=== PATIENT | female | born 1985 | race Caucasian/White ===

== ENCOUNTER 2024-04-04 05:36 | Inpatient (IN) | payer OTHER, SELFPAY ==
[2024-04-03 23:57] VITALS: BP 55/32
[2024-04-04] VITALS (114 sets, daily range): BP systolic 58–128; BP diastolic 32–92; BMI 25.2; BMI 25.9
--- NOTE | 2024-04-04 | ED.GENMED ---
History of Present Illness
<Murali Linares, DO - Last Filed: 04/05/24 07:46>
General
Chief Complaint: Unresponsive
Source: ambulance crew
Exam Limitations: clinical condition
Time Seen by Provider: 04/04/24 00:00
History of Present Illness
History of Present Illness:
See MDM
Past History
<Murali Linares, DO - Last Filed: 04/05/24 07:46>
Past History
ED Past Medical History: None
ED Past Surgical History: None
Social History
Tobacco: Non-smoker
Alcohol: Occasional
Phy Exam
<Murali Linares, DO - Last Filed: 04/05/24 07:46>
Physical Exam
Physical Exam:
See MDM
Course
<Murali Linares, DO - Last Filed: 04/05/24 07:46>
Orders/Labs/Results
Orders:
Orders
04/03/24 23:51
Cardiac Monitoring- Treatment ONCE
IV Insert/Care/Rem.- Treatment PRN
O2 Therapy [RESP] Urgent
Titrate/Wean O2 to maintain O2 sat greater than (%): 93
Special Instructions: TO MAINTAIN CONTINUOUS O2 SATS > OR = 93%
Pulse Ox/cont/shift [RESP] Urgent
Quantity: 1
Special Instructions: CONTINUOUS
04/03/24 23:52
EKG- Treatment ONCE
Test Result ONCE
04/03/24 23:58
Portable Chest Xray [CR Chest Portable - 1 View] Urgent
Comment:
Reason For Exam: POST INTUBATION
Reason Study Needs to be Portable: Patient Unstable
04/03/24 23:59
Alcohol Urgent
B-Hydroxybutyrate Urgent
Complete Blood Count/With Diff Urgent
Comprehensive Metabolic Panel Urgent
HCG, Serum Qualitative Screen Urgent
Comment: Notify provider if positive test present
Lactic Acid Q4H
Comment: ON ICE, CANCEL 2ND ORDER IF FIRST LACTIC ACID LEVEL <2
Magnesium Urgent
Salicylate Urgent
Tylenol [Acetaminophen] Urgent
Urinalysis Reflex To Culture Urgent
Date Specimen was Collected: 04/03/24
Time Specimen was Collected: 23:52
Urine Drug Abuse Screen Urgent
Date Specimen was Collected: 04/03/24
Time Specimen was Collected: 23:52
Urine Microscopic Reflex Cult Urgent
Venous Blood Gas Urgent
%Oxygen/Room Air: RA
Urine Culture Urgent
ODALYS Source: U
Specimen Description:
Date Specimen was Collected: 04/03/24
Time Specimen was Collected: 23:52
04/04/24
Electrocardiogram (*1) Stat
Other Reason for Exam: PO SEPSIS
Comment: DONE
04/04/24 00:30
CT Head W/o Iv Contrast Urgent
Reason For Exam: AMS
04/04/24 00:46
Insulin Human Regular [Novolin R] 8 units IV NOW STA
04/04/24 00:47
Bedside Glucose- Treatment Q1H
IV Insert/Care/Rem.- Treatment PRN
04/04/24 00:52
NORepinephrine 4 MG/250 ML [Levophed] 4 mg in 250 ml .ROUTE .STK-MED
04/04/24 00:54
Basic Metabolic Panel Q2H
Comment: NO K
Serum Osmolality Routine
Comment: ADD ON
Triglycerides Routine
Comment: ADD ON
Propofol 1,000,000 Mcg/100 ml [Diprivan] 1,000,000 mcg in 100 ml .ROUTE .STK-MED
04/04/24 01:35
KCl 20 Meq/50 ml [KCl] 20 meq in 50 ml IV NOW
NORepinephrine 4 MG/250 ML [Levophed] 4 mg in 250 ml IV NOW
Initial dose in mcg/min, then titrate:: 2
Titrate to keep:: MAP > 65 mmHg
Titrate by mcg/min:: 1-2 mcg/min
Frequency of titrations (minutes):: 5
Maximum dose in ICU in mcg/min:: 30
Maximum dose in IMU in mcg/min:: 8
Maximum dose in IVU in mcg/min:: 4
Begin to taper infusion when:: Remained at goal for 4hrs
Taper by mcg/min:: 1-2 mcg/min
Frequency of taper (minutes) if patient maintains goal:: 30
Taper to off?: Yes
If infusion off & no longer maintaining goal:: Contact Provider
Reg Insulin 100 Units/100 ml [Novolin R Insulin Infusion] 100 units in 100 ml IV NOW
04/04/24 01:37
Reg Insulin 100 Units/100 ml [Novolin R Insulin Infusion] 100 units in 100 ml IV NOW
04/04/24 01:38
CefTRIAXone [Rocephin] 1,000 mg IV NOW STA
04/04/24 01:39
Propofol 1,000,000 Mcg/100 ml [Diprivan] 1,000,000 mcg in 100 ml IV NOW
Indication:: Light Sedation
Begin Infusion:: Now
Goal:: RASS 0 to -2
Maximum dose in mcg/kg/min:: 50
Initial dose based on RASS:: Yes
If RASS is:: +1 or pt hemodynamically unstable (SBP < 90mmHg), initiate at 10 mcg/kg/min
If RASS is:: +2, initiate at 20 mcg/kg/min
If RASS is:: greater than or equal to +3, initiate at 30 mcg/kg/min
Titration Instructions:: Titrate by 5-10 mcg/kg/min every 5 minutes until RASS 0 to -2 achieved.
Taper Instructions:: If RASS is at or below goal for 4 consecutive hours decrease infusion by
Taper Instructions:: 5-10 mcg/kg/min every 2 hours to off.
Over-sedation Instructions:: If CPOT 0-2 (at goal) AND RASS -3 to -5 (below goal) decrease sedative by
Over-sedation Instructions:: 50% first. If pain score remains at goal and RASS remains below goal in
Over-sedation Instructions:: 1 hour, decrease opioid infusion by 50%.
Notify provider:: immediately if patient exhibits signs/symptoms of propofol-related
Notify provider:: infusion syndrome.
Additional Instructions:: Patient MUST be mechanically ventilated and MUST receive analgesia.
04/04/24 01:41
Add On- LAB Urgent
Tests Added?: Serum osmol
04/04/24 01:42
CT Chest/abd/pel W Iv Cont Urgent
Comment:
Reason For Exam: altered
04/04/24 01:45
Dextrose 5%/Water 1000 ml [D5w] 1,000 ml Sodium Bicarbonate 150 meq IV 150 mls/hr
Sodium Bicarbonate 100 meq Potassium Chloride [KCl] 20 meq Sterile Water For Inj [Sterile Water For Injection 500 ml] 400 ml IV ONCE
04/04/24 01:51
Add On- LAB Urgent
Tests Added?: UDS
04/04/24 01:55
ABG [Arterial Blood Gas] Urgent
%Oxygen/Room Air: 80
04/04/24 02:00
Dextrose 5%/Water 1000 ml [D5w] 1,000 ml Sodium Bicarbonate 150 meq IV 150 mls/hr
04/04/24 02:10
Basic Metabolic Panel Q2H
Lactic Acid Q4H
Comment: ON ICE, CANCEL 2ND ORDER IF FIRST LACTIC ACID LEVEL <2
04/04/24 02:36
Fentanyl Citrate/Pf [Sublimaze] 25 mcg IV NOW STA
04/04/24 04:30
BMP [Basic Metabolic Panel] Urgent
Lactic Acid Urgent
04/04/24 04:39
Transvaginal US [US Pelvis W Transvag Combined] Stat
Comment:
Reason For Exam: Ovarian Torsion
04/04/24 04:52
HH [H&H] Urgent
04/04/24 05:03
Blood Bank Products [* Blood Bank Products] Urgent
's Orders: Transfuse 2 units PRBCs
Blood Bank Products: *Packed RBC Leuko(PRBC's)
Quantity: 2
Transfuse Today: Yes
Reason: Bleeding
04/04/24 05:05
NORepinephrine 4 MG/250 ML [Levophed] 4 mg in 250 ml .ROUTE .STK-MED
04/04/24 05:12
Type And Crossmatch [Type+Screen] Urgent
04/04/24 05:15
NORepinephrine 4 MG/250 ML [Levophed] 4 mg in 250 ml IV PER PROTOCOL
Currently infusing. Continue current dose and titrate:: Yes
Titrate to keep:: MAP > 65 mmHg
Titrate by mcg/min:: 1-2 mcg/min
Frequency of titrations (minutes):: 5
Maximum dose in ICU in mcg/min:: 30
Maximum dose in IMU in mcg/min:: 8
Maximum dose in IVU in mcg/min:: 4
Begin to taper infusion when:: Remained at goal for 4hrs
Taper by mcg/min:: 1-2 mcg/min
Frequency of taper (minutes) if patient maintains goal:: 30
Taper to off?: Yes
If infusion off & no longer maintaining goal:: Contact Provider
04/04/24 05:23
Admit/Transfer Patient As Directed
Co-Sign Provider:
Level of Care: Inpatient admission
Assign to:: ICU
Physician / Group: [facility]
Diagnosis: Hemoperitoneum, Hypovolemic Shock
Reason for Hospitalization: Hemoperitoneum, Hypovolemic Shock
Expected length of stay greater than two midnights?: Yes
ELOS- Estimated Length of Stay in days: 5
I certify the patient meets the requirements for IP care: Yes
PRN Pain Medication Management As Directed
May give lesser potent ordered pain med per pt: Yes
preference::
Protocol:: Medication orders for pain may be administered in a
manner that supports deferring to patient preference
when the pt is:
- Requesting an ordered lesser potent pain medication.
Least to most potent pain medications are defined
as: acetaminophen < NSAID < tramadol < opioids
(morphine, oxycodone, hydromorphone).
- Requesting a lesser dose of the same medication IF
ORDERED.
- Requesting a less intrusive route of administration
if both routes are prescribed by the provider (PO <
IV).
04/04/24 05:25
ABO2 Urgent
BBK Wristband Number:
Associate notified that ABO2 has been ordered: [id number]
Date: 04/04/24
Time: 05:20
Brush Clearing Laborer ID: [id number]
04/04/24 05:26
Code Status As Directed
Resuscitation Status: Full Code
04/04/24 05:29
Dexamethasone Sod Phosphate [Decadron] 20 mg .ROUTE .STK-MED ONE
Lidocaine 2% [Xylocaine 2% Mdv] 20 ml .ROUTE .STK-MED ONE
Ondansetron Injectable [Zofran] 4 mg .ROUTE .STK-MED ONE
Propofol [Diprivan] 20 ml .ROUTE .STK-MED
Rocuronium [place] [Rocuronium] 50 mg .ROUTE .STK-MED ONE
04/04/24 05:31
Fentanyl Citrate/Pf [Sublimaze] 100 mcg .ROUTE .STK-MED ONE
Midazolam HCl [Versed] 2 mg .ROUTE .STK-MED ONE
04/04/24 05:50
Basic Metabolic Panel Q2H
04/04/24 Breakfast
NPO
Allow oral meds: Yes
Allow clear liquids: Sips of Clears
04/04/24 08:54
Acetaminophen [Tylenol] 650 mg PO Q4HPRN PRN
HYDROmorphone [Dilaudid] 0.5 mg IV Q4HPRN PRN
Ondansetron Injectable [Zofran] 4 mg IV Q6HPRN PRN
Pantoprazole [Protonix IV] 40 mg IV DAILY
04/04/24 08:54
Consult Notification Routine
Specialty to Notify: Joint Finisher
Date consulting provider notified: 04/05/24
Time consulting provider notified: 07:01
Notified:: Other
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
Joint Finisher Consult Routine
Consulting Provider: Bni Yepez
Was physician already notified: No
Reason for consult: Hemoperitoneum, Hypovolemic Shock
FRONT END DRIVER CONSULT Urgent
Consulting Provider: Alona Ferraro
Was physician already notified: Yes
Reason for consult: Hemoperitoneum, Hypovolemic Shock
Activity As Directed
Activity Level: Bedrest
EKG with chest pain [ECG as needed] As Directed
ECG as needed for:: Chest Pain
Cm Catheter [Catheter- Indwelling] As Directed
Reason for insertion: I&O's Critical Care
Assess insertion reason daily.Remove if no longer applicable: Yes
I/O [Intake/ Output] As Directed
Frequency: Per unit guidelines
Pneumatic Compression Sleeves As Directed
Type: Knee high
Vital Signs As Directed
Frequency: Per unit guidelines
Weight As Directed
Frequency: Daily
Oxygen Therapy [O2 Therapy] [RESP] Routine
Titrate/Wean O2 to maintain O2 sat greater than (%): 94
DX Deep Vein Thrombosis Video Routine
04/04/24 10:10
HH [H&H] Q6H
04/04/24 15:48
Lactic Acid Q6H
04/04/24 15:49
Basic Metabolic Panel Q6H
HH [H&H] Q6H
04/04/24 20:29
Basic Metabolic Panel Q6H
HH [H&H] Q6H
Lactic Acid Q6H
04/05/24 03:17
Basic Metabolic Panel Q6H
Abnormal Lab Results
04/03/24 04/04/24 04/04/24
23:59 00:01 00:54
RBC 2.79 L 10^6/uL
(4.20-5.40)
Hgb 10.5 L g/dL
(12.0-16.0)
Hct 32.0 L %
(37.0-47.0)
MCV 114.7 H fL
(81.0-99.0)
MCH 37.6 H pg
(27.0-31.0)
MCHC 32.8 L g/dL
(33.0-37.0)
Abs Immat Gran (auto) 0.3 H 10^3/uL
(0-0.05)
Immature Gran % 4.6 H %
(0-0.5)
pH
pCO2
pO2
HCO3
ABG O2 Sat (Measured)
VBG pH 6.80 L*
(7.32-7.43)
VBG pCO2 68 H mmHg
(35-48)
VBG pO2 59 H mmHg
(30-50)
VBG HCO3 10.6 L mmol/L
(22-27)
Sodium 146 H mmol/L
(135-145)
Chloride 112 H mmol/L
(98-107)
Carbon Dioxide 10 L* mmol/L 5 L* mmol/L
(22-30) (22-30)
Creatinine 1.5 H mg/dL 1.3 H mg/dL
(0.6-1.0) (0.6-1.0)
Glucose 306 H mg/dl 174 H mg/dl
(70-99) (70-99)
Serum Osmolality 347 H mOsm/kg
(275-300)
Lactic Acid 17.9 H* mmol/L
(0.7-2.0)
Calcium 7.9 L D mg/dl
(8.4-10.2)
Magnesium 3.0 H mg/dl
(1.6-2.3)
AST 172 H U/L
(14-36)
ALT 105 H U/L
(0-35)
Triglycerides 325 H mg/dl
(10-149)
Urine Nitrite (Reflex) Positive A
(Negative)
Urine Bacteria (Reflex) Moderate A
(Negative)
Salicylates < 1.0 L mg/dl
(2.0-20.0)
Acetaminophen < 10 L ug/ml
(10-30)
U Marijuana (THC) Screen Positive H
(Negative)
B-Hydroxybutyrate 0.29 H mmol/L
(0.02-0.27)
POC Glucose 291 H mg/dl
(99)
Crossmatch IS Only
04/04/24 04/04/24 04/04/24
01:16 01:50 01:55
RBC
Hgb
Hct
MCV
MCH
MCHC
Abs Immat Gran (auto)
Immature Gran %
pH 6.93 L*
(7.35-7.45)
pCO2 36 H mmHg
(32-35)
pO2 334 H mmHg
(83-108)
HCO3 7.6 L* mmol/L
(-)
ABG O2 Sat (Measured) 100.0 H %
(94-98)
VBG pH
VBG pCO2
VBG pO2
VBG HCO3
Sodium
Chloride
Carbon Dioxide
Creatinine
Glucose
Serum Osmolality
Lactic Acid
Calcium
Magnesium
AST
ALT
Triglycerides
Urine Nitrite (Reflex)
Urine Bacteria (Reflex)
Salicylates
Acetaminophen
U Marijuana (THC) Screen
B-Hydroxybutyrate
POC Glucose 164 H mg/dl 111 H mg/dl
(70-99) (70-99)
Crossmatch IS Only
04/04/24 04/04/24 04/04/24
02:10 04:30 04:52
RBC
Hgb 8.2 L D g/dL
(12.0-16.0)
Hct 22.9 L %
(37.0-47.0)
MCV
MCH
MCHC
Abs Immat Gran (auto)
Immature Gran %
pH
pCO2
pO2
HCO3
ABG O2 Sat (Measured)
VBG pH
VBG pCO2
VBG pO2
VBG HCO3
Sodium
Chloride 114 H mmol/L 111 H mmol/L
(98-107) (98-107)
Carbon Dioxide 10 L* mmol/L 14 L* mmol/L
(22-30) (22-30)
Creatinine 1.3 H mg/dL 1.1 H mg/dL
(0.6-1.0) (0.6-1.0)
Glucose 61 L mg/dl
(70-99)
Serum Osmolality
Lactic Acid 13.4 H* mmol/L 10.6 H* mmol/L
(0.7-2.0) (0.7-2.0)
Calcium 7.0 L mg/dl 6.8 L* mg/dl
(8.4-10.2) (8.4-10.2)
Magnesium
AST
ALT
Triglycerides
Urine Nitrite (Reflex)
Urine Bacteria (Reflex)
Salicylates
Acetaminophen
U Marijuana (THC) Screen
B-Hydroxybutyrate
POC Glucose
Crossmatch IS Only
24 04/04/24
05:12 05:17
RBC
Hgb
Hct
MCV
MCH
MCHC
Abs Immat Gran (auto)
Immature Gran %
pH
pCO2
pO2
HCO3
ABG O2 Sat (Measured)
VBG pH
VBG pCO2
VBG pO2
VBG HCO3
Sodium
Chloride
Carbon Dioxide
Creatinine
Glucose
Serum Osmolality
Lactic Acid
Calcium
Magnesium
AST
ALT
Triglycerides
Urine Nitrite (Reflex)
Urine Bacteria (Reflex)
Salicylates
Acetaminophen
U Marijuana (THC) Screen
B-Hydroxybutyrate
POC Glucose 103 H mg/dl
(70-99)
Crossmatch IS Only See Detail
04/04/24 04:52
04/04/24 04:30
Vital Signs
Initial and Last Documented VS:
Initial Vital Signs
Pulse BP Pulse Ox
45 55/32 86
04/03/24 23:57 04/03/24 23:57 04/03/24 23:57
Last Documented Vital Signs
Temp Pulse Resp BP Pulse Ox
98.6 F 80 4 94/64 94
04/05/24 03:21 04/05/24 06:00 04/05/24 06:00 04/05/24 06:00 04/05/24 06:00
<Gabby Funk, DO - Last Filed: 04/04/24 03:15>
Orders/Labs/Results
Orders:
Orders
04/03/24 23:51
Cardiac Monitoring- Treatment ONCE
IV Insert/Care/Rem.- Treatment PRN
O2 Therapy [RESP] Urgent
Titrate/Wean O2 to maintain O2 sat greater than (%): 93
Special Instructions: TO MAINTAIN CONTINUOUS O2 SATS > OR = 93%
Pulse Ox/cont/shift [RESP] Urgent
Quantity: 1
Special Instructions: CONTINUOUS
04/03/24 23:52
EKG- Treatment ONCE
Test Result ONCE
04/03/24 23:58
Portable Chest Xray [CR Chest Portable - 1 View] Urgent
Comment:
Reason For Exam: POST INTUBATION
Reason Study Needs to be Portable: Patient Unstable
04/03/24 23:59
Alcohol Urgent
B-Hydroxybutyrate Urgent
Complete Blood Count/With Diff Urgent
Comprehensive Metabolic Panel Urgent
HCG, Serum Qualitative Screen Urgent
Comment: Notify provider if positive test present
Lactic Acid Q4H
Comment: ON ICE, CANCEL 2ND ORDER IF FIRST LACTIC ACID LEVEL <2
Magnesium Urgent
Salicylate Urgent
Tylenol [Acetaminophen] Urgent
Urinalysis Reflex To Culture Urgent
Date Specimen was Collected: 04/03/24
Time Specimen was Collected: 23:52
Urine Drug Abuse Screen Urgent
Date Specimen was Collected: 04/03/24
Time Specimen was Collected: 23:52
Urine Microscopic Reflex Cult Urgent
Venous Blood Gas Urgent
%Oxygen/Room Air: RA
Urine Culture Urgent
ODALYS Source: U
Specimen Description:
Date Specimen was Collected: 04/03/24
Time Specimen was Collected: 23:52
04/04/24
Electrocardiogram (*1) Stat
Other Reason for Exam: PO SEPSIS
Comment: DONE
04/04/24 00:30
CT Head W/o Iv Contrast Urgent
Reason For Exam: AMS
04/04/24 00:46
Insulin Human Regular [Novolin R] 8 units IV NOW STA
04/04/24 00:47
Bedside Glucose- Treatment Q1H
IV Insert/Care/Rem.- Treatment PRN
04/04/24 00:52
NORepinephrine 4 MG/250 ML [Levophed] 4 mg in 250 ml .ROUTE .STK-MED
04/04/24 00:54
Basic Metabolic Panel Q2H
Comment: NO K
Serum Osmolality Routine
Comment: ADD ON
Triglycerides Routine
Comment: ADD ON
Propofol 1,000,000 Mcg/100 ml [Diprivan] 1,000,000 mcg in 100 ml .ROUTE .STK-MED
04/04/24 01:35
KCl 20 Meq/50 ml [KCl] 20 meq in 50 ml IV NOW
NORepinephrine 4 MG/250 ML [Levophed] 4 mg in 250 ml IV NOW
Initial dose in mcg/min, then titrate:: 2
Titrate to keep:: MAP > 65 mmHg
Titrate by mcg/min:: 1-2 mcg/min
Frequency of titrations (minutes):: 5
Maximum dose in ICU in mcg/min:: 30
Maximum dose in IMU in mcg/min:: 8
Maximum dose in IVU in mcg/min:: 4
Begin to taper infusion when:: Remained at goal for 4hrs
Taper by mcg/min:: 1-2 mcg/min
Frequency of taper (minutes) if patient maintains goal:: 30
Taper to off?: Yes
If infusion off & no longer maintaining goal:: Contact Provider
Reg Insulin 100 Units/100 ml [Novolin R Insulin Infusion] 100 units in 100 ml IV NOW
04/04/24 01:37
Reg Insulin 100 Units/100 ml [Novolin R Insulin Infusion] 100 units in 100 ml IV NOW
04/04/24 01:38
CefTRIAXone [Rocephin] 1,000 mg IV NOW STA
04/04/24 01:39
Propofol 1,000,000 Mcg/100 ml [Diprivan] 1,000,000 mcg in 100 ml IV NOW
Indication:: Light Sedation
Begin Infusion:: Now
Goal:: RASS 0 to -2
Maximum dose in mcg/kg/min:: 50
Initial dose based on RASS:: Yes
If RASS is:: +1 or pt hemodynamically unstable (SBP < 90mmHg), initiate at 10 mcg/kg/min
If RASS is:: +2, initiate at 20 mcg/kg/min
If RASS is:: greater than or equal to +3, initiate at 30 mcg/kg/min
Titration Instructions:: Titrate by 5-10 mcg/kg/min every 5 minutes until RASS 0 to -2 achieved.
Taper Instructions:: If RASS is at or below goal for 4 consecutive hours decrease infusion by
Taper Instructions:: 5-10 mcg/kg/min every 2 hours to off.
Over-sedation Instructions:: If CPOT 0-2 (at goal) AND RASS -3 to -5 (below goal) decrease sedative by
Over-sedation Instructions:: 50% first. If pain score remains at goal and RASS remains below goal in
Over-sedation Instructions:: 1 hour, decrease opioid infusion by 50%.
Notify provider:: immediately if patient exhibits signs/symptoms of propofol-related
Notify provider:: infusion syndrome.
Additional Instructions:: Patient MUST be mechanically ventilated and MUST receive analgesia.
04/04/24 01:41
Add On- LAB Urgent
Tests Added?: Serum osmol
04/04/24 01:42
CT Chest/abd/pel W Iv Cont Urgent
Comment:
Reason For Exam: altered
04/04/24 01:45
Dextrose 5%/Water 1000 ml [D5w] 1,000 ml Sodium Bicarbonate 150 meq IV 150 mls/hr
Sodium Bicarbonate 100 meq Potassium Chloride [KCl] 20 meq Sterile Water For Inj [Sterile Water For Injection 500 ml] 400 ml IV ONCE
04/04/24 01:51
Add On- LAB Urgent
Tests Added?: UDS
04/04/24 01:55
ABG [Arterial Blood Gas] Urgent
%Oxygen/Room Air: 80
04/04/24 02:00
Dextrose 5%/Water 1000 ml [D5w] 1,000 ml Sodium Bicarbonate 150 meq IV 150 mls/hr
04/04/24 02:10
Basic Metabolic Panel Q2H
Lactic Acid Q4H
Comment: ON ICE, CANCEL 2ND ORDER IF FIRST LACTIC ACID LEVEL <2
04/04/24 02:36
Fentanyl Citrate/Pf [Sublimaze] 25 mcg IV NOW STA
04/04/24 04:30
BMP [Basic Metabolic Panel] Urgent
Lactic Acid Urgent
04/04/24 04:39
Transvaginal US [US Pelvis W Transvag Combined] Stat
Comment:
Reason For Exam: Ovarian Torsion
04/04/24 04:52
HH [H&H] Urgent
04/04/24 05:03
Blood Bank Products [* Blood Bank Products] Urgent
Dr's Orders: Transfuse 2 units PRBCs
Blood Bank Products: *Packed RBC Leuko(PRBC's)
Quantity: 2
Transfuse Today: Yes
Reason: Bleeding
04/04/24 05:05
NORepinephrine 4 MG/250 ML [Levophed] 4 mg in 250 ml .ROUTE .STK-MED
04/04/24 05:12
Type And Crossmatch [Type+Screen] Urgent
04/04/24 05:15
NORepinephrine 4 MG/250 ML [Levophed] 4 mg in 250 ml IV PER PROTOCOL
Currently infusing. Continue current dose and titrate:: Yes
Titrate to keep:: MAP > 65 mmHg
Titrate by mcg/min:: 1-2 mcg/min
Frequency of titrations (minutes):: 5
Maximum dose in ICU in mcg/min:: 30
Maximum dose in IMU in mcg/min:: 8
Maximum dose in IVU in mcg/min:: 4
Begin to taper infusion when:: Remained at goal for 4hrs
Taper by mcg/min:: 1-2 mcg/min
Frequency of taper (minutes) if patient maintains goal:: 30
Taper to off?: Yes
If infusion off & no longer maintaining goal:: Contact Provider
04/04/24 05:23
Admit/Transfer Patient As Directed
Co-Sign Provider:
Level of Care: Inpatient admission
Assign to:: ICU
Physician / Group: Edmundo
Diagnosis: Hemoperitoneum, Hypovolemic Shock
Reason for Hospitalization: Hemoperitoneum, Hypovolemic Shock
Expected length of stay greater than two midnights?: Yes
ELOS- Estimated Length of Stay in days: 5
I certify the patient meets the requirements for IP care: Yes
PRN Pain Medication Management As Directed
May give lesser potent ordered pain med per pt: Yes
preference::
Protocol:: Medication orders for pain may be administered in a
manner that supports deferring to patient preference
when the pt is:
- Requesting an ordered lesser potent pain medication.
Least to most potent pain medications are defined
as: acetaminophen < NSAID < tramadol < opioids
(morphine, oxycodone, hydromorphone).
- Requesting a lesser dose of the same medication IF
ORDERED.
- Requesting a less intrusive route of administration
if both routes are prescribed by the provider (PO <
IV).
04/04/24 05:25
ABO2 Urgent
K Wristband Number:
Associate notified that ABO2 has been ordered: [id number]
Date: 04/04/24
Time: 05:20
Brush Clearing Laborer ID: [id number]
04/04/24 05:26
Code Status As Directed
Resuscitation Status: Full Code
04/04/24 05:29
Dexamethasone Sod Phosphate [Decadron] 20 mg .ROUTE .STK-MED ONE
Lidocaine 2% [Xylocaine 2% Mdv] 20 ml .ROUTE .STK-MED ONE
Ondansetron Injectable [Zofran] 4 mg .ROUTE .STK-MED ONE
Propofol [Diprivan] 20 ml .ROUTE .STK-MED
Rocuronium [place] [Rocuronium] 50 mg .ROUTE .STK-MED ONE
04/04/24 05:31
Fentanyl Citrate/Pf [Sublimaze] 100 mcg .ROUTE .STK-MED ONE
Midazolam HCl [Versed] 2 mg .ROUTE .STK-MED ONE
04/04/24 05:50
Basic Metabolic Panel Q2H
04/04/24 Breakfast
NPO
Allow oral meds: Yes
Allow clear liquids: Sips of Clears
04/04/24 08:54
Acetaminophen [Tylenol] 650 mg PO Q4HPRN PRN
HYDROmorphone [Dilaudid] 0.5 mg IV Q4HPRN PRN
Ondansetron Injectable [Zofran] 4 mg IV Q6HPRN PRN
Pantoprazole [Protonix IV] 40 mg IV DAILY
04/04/24 08:54
Consult Notification Routine
Specialty to Notify: Joint Finisher
Date consulting provider notified: 04/05/24
Time consulting provider notified: 07:01
Notified:: Other
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
Joint Finisher Consult Routine
Consulting Provider: Bin Yepez
Was physician already notified: No
Reason for consult: Hemoperitoneum, Hypovolemic Shock
FRONT END DRIVER CONSULT Urgent
Consulting Provider: Alona Ferraro
Was physician already notified: Yes
Reason for consult: Hemoperitoneum, Hypovolemic Shock
Activity As Directed
Activity Level: Bedrest
EKG with chest pain [ECG as needed] As Directed
ECG as needed for:: Chest Pain
Cm Catheter [Catheter- Indwelling] As Directed
Reason for insertion: I&O's Critical Care
Assess insertion reason daily.Remove if no longer applicable: Yes
I/O [Intake/ Output] As Directed
Frequency: Per unit guidelines
Pneumatic Compression Sleeves As Directed
Type: Knee high
Vital Signs As Directed
Frequency: Per unit guidelines
Weight As Directed
Frequency: Daily
Oxygen Therapy [O2 Therapy] [RESP] Routine
Titrate/Wean O2 to maintain O2 sat greater than (%): 94
DX Deep Vein Thrombosis Video Routine
04/04/24 10:10
HH [H&H] Q6H
04/04/24 15:48
Lactic Acid Q6H
04/04/24 15:49
Basic Metabolic Panel Q6H
HH [H&H] Q6H
04/04/24 20:29
Basic Metabolic Panel Q6H
HH [H&H] Q6H
Lactic Acid Q6H
04/05/24 03:17
Basic Metabolic Panel Q6H
Abnormal Lab Results
04/03/24 04/04/24 04/04/24
23:59 00:01 00:54
RBC 2.79 L 10^6/uL
(4.20-5.40)
Hgb 10.5 L g/dL
(12.0-16.0)
Hct 32.0 L %
(37.0-47.0)
MCV 114.7 H fL
(81.0-99.0)
MCH 37.6 H pg
(27.0-31.0)
MCHC 32.8 L g/dL
(33.0-37.0)
Abs Immat Gran (auto) 0.3 H 10^3/uL
(0-0.05)
Immature Gran % 4.6 H %
(0-0.5)
pH
pCO2
pO2
HCO3
ABG O2 Sat (Measured)
VBG pH 6.80 L*
(7.32-7.43)
VBG pCO2 68 H mmHg
(35-48)
VBG pO2 59 H mmHg
(30-50)
VBG HCO3 10.6 L mmol/L
(22-27)
Sodium 146 H mmol/L
(135-145)
Chloride 112 H mmol/L
(98-107)
Carbon Dioxide 10 L* mmol/L 5 L* mmol/L
(22-30) (22-30)
Creatinine 1.5 H mg/dL 1.3 H mg/dL
(0.6-1.0) (0.6-1.0)
Glucose 306 H mg/dl 174 H mg/dl
(70-99) (70-99)
Serum Osmolality 347 H mOsm/kg
(275-300)
Lactic Acid 17.9 H* mmol/L
(0.7-2.0)
Calcium 7.9 L D mg/dl
(8.4-10.2)
Magnesium 3.0 H mg/dl
(1.6-2.3)
AST 172 H U/L
(14-36)
ALT 105 H U/L
(0-35)
Triglycerides 325 H mg/dl
(10-149)
Urine Nitrite (Reflex) Positive A
(Negative)
Urine Bacteria (Reflex) Moderate A
(Negative)
Salicylates < 1.0 L mg/dl
(2.0-20.0)
Acetaminophen < 10 L ug/ml
(10-30)
U Marijuana (THC) Screen Positive H
(Negative)
B-Hydroxybutyrate 0.29 H mmol/L
(0.02-0.27)
POC Glucose 291 H mg/dl
(70-99)
Crossmatch IS Only
04/04/24 04/04/24 04/04/24
01:16 01:50 01:55
RBC
Hgb
Hct
MCV
MCH
MCHC
Abs Immat Gran (auto)
Immature Gran %
pH 6.93 L*
(7.35-7.45)
pCO2 36 H mmHg
(32-35)
pO2 334 H mmHg
(83-108)
HCO3 7.6 L* mmol/L
(21-28)
ABG O2 Sat (Measured) 100.0 H %
(94-98)
VBG pH
VBG pCO2
VBG pO2
VBG HCO3
Sodium
Chloride
Carbon Dioxide
Creatinine
Glucose
Serum Osmolality
Lactic Acid
Calcium
Magnesium
AST
ALT
Triglycerides
Urine Nitrite (Reflex)
Urine Bacteria (Reflex)
Salicylates
Acetaminophen
U Marijuana (THC) Screen
B-Hydroxybutyrate
POC Glucose 164 H mg/dl 111 H mg/dl
(70-99) (70-99)
Crossmatch IS Only
04/04/24 04/04/24 04/04/24
02:10 04:30 04:52
RBC
Hgb 8.2 L D g/dL
(12.0-16.0)
Hct 22.9 L %
(37.0-47.0)
MCV
MCH
MCHC
Abs Immat Gran (auto)
Immature Gran %
pH
pCO2
pO2
HCO3
ABG O2 Sat (Measured)
VBG pH
VBG pCO2
VBG pO2
VBG HCO3
Sodium
Chloride 114 H mmol/L 111 H mmol/L
(98-107) (98-107)
Carbon Dioxide 10 L* mmol/L 14 L* mmol/L
(22-30) (22-30)
Creatinine 1.3 H mg/dL 1.1 H mg/dL
(0.6-1.0) (0.6-1.0)
Glucose 61 L mg/dl
(70-99)
Serum Osmolality
Lactic Acid 13.4 H* mmol/L 10.6 H* mmol/L
(0.7-2.0) (0.7-2.0)
Calcium 7.0 L mg/dl 6.8 L* mg/dl
(8.4-10.2) (8.4-10.2)
Magnesium
AST
ALT
Triglycerides
Urine Nitrite (Reflex)
Urine Bacteria (Reflex)
Salicylates
Acetaminophen
U Marijuana (THC) Screen
B-Hydroxybutyrate
POC Glucose
Crossmatch IS Only
04/04/24 04/04/24
05:12 05:17
RBC
Hgb
Hct
MCV
MCH
MCHC
Abs Immat Gran (auto)
Immature Gran %
pH
pCO2
pO2
HCO3
ABG O2 Sat (Measured)
VBG pH
VBG pCO2
VBG pO2
VBG HCO3
Sodium
Chloride
Carbon Dioxide
Creatinine
Glucose
Serum Osmolality
Lactic Acid
Calcium
Magnesium
AST
ALT
Triglycerides
Urine Nitrite (Reflex)
Urine Bacteria (Reflex)
Salicylates
Acetaminophen
U Marijuana (THC) Screen
B-Hydroxybutyrate
POC Glucose 103 H mg/dl
(70-99)
Crossmatch IS Only See Detail
04/04/24 04:52
04/04/24 04:30
Vital Signs
Initial and Last Documented VS:
Initial Vital Signs
Pulse BP Pulse Ox
45 55/32 86
04/03/24 23:57 04/03/24 23:57 04/03/24 23:57
Last Documented Vital Signs
Temp Pulse Resp BP Pulse Ox
98.6 F 80 4 94/64 94
04/05/24 03:21 04/05/24 06:00 04/05/24 06:00 04/05/24 06:00 04/05/24 06:00
Procedures
<Murali Linares DO - Last Filed: 04/05/24 07:46>
Intubations
Procedure completed by: Murali Linares DO
Method of Intubation: glidescope
Tube size (cm): 8.0
Placement confirmed by: auscutation, capnography and direct visualization
Breath sounds after intubation: equal
Intubation complications: no complications
Central Line
Left Femoral:
Indication for procedure:: Access
Procedure completed by: Murali Linares DO
Consent form signed: No
If no, reason: Emergency procedure
Central line lumen: triple
Number of attempts: 1
Central line complications: none
Sterile dressing applied?: Yes
<Murali Linarse, DO - Last Filed: 04/05/24 07:46>
MDM/Problems Addressed
Differential Diagnosis Includes:
HPI and MDM Narrative:
38-year-old female presenting with unresponsiveness. Per EMS, family had called 911 when she started to vomit. Apparently, she drank alcohol today but not more than usual. EMS stating that patient became very obtunded by the time they arrived.
They did indicate that she was hyperglycemic with no prior history of diabetes. They called ahead indicating the likely need for intubation. On arrival, patient is bradycardia, dilated pupils and not responding to any stimuli. Patient has no
purposeful movement. Patient is not protecting airway and has some vomit in the posterior pharynx. Patient was intubated immediately and did not require any sedation. Prior to this, patient given a dose of Narcan which did nothing.
Family came to the emergency department immediately. I updated them and they indicated that she did have some alcoholic drinks today but nothing out of the ordinary. She went outside for cigarette and started complaining of a headache. She then
began to vomit and was blaming this on viral gastroenteritis. Over the progression of 2 hours, patient became increasingly altered and obtunded. Family is unconcerned for intentional overdose
Physical exam
General: Obtunded, nonverbal, not following commands, no purposeful movement noted
HEENT: Not protecting airway. Both pupils are dilated. Small amount of vomit in the posterior pharynx
Neck: appears supple
CV: Bradycardic
Resp: Significant episodes of apnea. Lungs clear to bagging
Abd: Non-distended
Extremities: No deformities
Neuro: GCS 3
Psych: Flat affect
Skin: Very cool to touch
Problems Addressed including Acute and Chronic Conditions affecting care:
1. Altered mental status
Acuity: acute
Prognosis: unstable
Details: Patient requiring intubation immediately. Will obtain CT looking for evidence of intracranial hemorrhage. Will obtain UDS and will rule out DKA
2. Hyperglycemia
Acuity: acute
Prognosis: stable
Details: Will consider insulin infusion pending repeat blood sugar. Patient given K rider and bicarb infusion
3. Low bicarb
Acuity: acute
Prognosis: unstable
Details: Patient placed on bicarb infusion
4. [ ]
Acuity: acute
Prognosis: stable
Details:
5. [ ]
Acuity:
Prognosis:
Details:
Updates
12:06 AM soon after intubation, hypotension and bradycardia improving.
12:[address] scanner and no obvious intracranial hemorrhage noted
Patient found to have significant lab abnormalities. She is acidotic. Lab abnormalities consistent with likely DKA. Patient started on insulin bolus and insulin drip. Will place central line and start Levophed and bicarb infusion
Patient starting to wake up and requiring propofol
1:40 AM repeat blood work shows worsening bicarb. Will place on bicarb drip
Patient found to have nitrates in urine. Will give dose of Rocephin
Given the significant lab abnormalities, will obtain CT chest/abdomen/pelvis
Differential Diagnosis (but not limited to): Intracranial hemorrhage, intentional overdose, DKA, postictal
Testing considered: CT neck but no trauma noted
Drug therapy (if applicable): OTC meds, please see d/c instruction regarding Rx drugs
Amount and/or Complexity of Data Reviewed
Clinical info obtained from: EMS
External data reviewed: N/A
Labs I independently reviewed (but not limited to): Elevated blood sugar, elevated lactic acid, low bicarb, acidotic
Radiology: The CT scan was personally and independently reviewed. In addition, official CT report reviewed.
x-ray independently reviewed:Chest x-ray clear. ET tube above jermain
Pulse Ox: not hypoxic
EKG independently reviewed: Sinus rhythm, normal axis, no STEMI
Manager Telecom: Sinus rhythm
Critical Care: The high probability of a clinically significant, sudden or life threatening deterioration of the cardiovascular and endocrine system(s) required my full and direct attention, intervention and personal management. The aggregate
critical care time was 80 minutes. This time is in addition to time spent performing reported procedures but includes the following:
[x] Data Review and interpretation
[x] Patient assessment and monitoring of vital signs
[x] Documentation
[x] Medication orders and management
Risk of Complication:
Social Determinants of health: Good social support
Discussed with other providers: Hospitalist
Escalation of Care includes Admit/Obs: Given her mental status and significant lab abnormalities, will admit
Occasional wrong word or 'sound a like' substitutions may have occurred due to the inherent limitations of voice recognition software. Read the chart carefully and recognize, using context, where substitutions have occurred.
<Murali Linares, DO - Last Filed: 04/05/24 07:46>
*Critical Care Note
Total Time (30-74mins, 75-104mins- exclusive of procedures): 80 min
<Gabby Funk DO - Last Filed: 04/04/24 03:15>
Update Note
Update Note:
04/04/2024 0305 AM
Patient is awake, alert, fighting ET tube.
Soft restraints in place.
She opens her eyes, nods yes and no appropriately to examiner.
Normal respiratory effort, assisting ventilator with pulse ox 100%.
Plan is to extubate. Awaiting respiratory arrival.
Propofol drip discontinued.
Patient has been extubated without incident.
She is awake, alert, has no recollection of earlier events.
She continues with normal respiratory effort, pulse ox 99 to 100% on room air.
Will place on nasal cannula oxygen.
ED Attending Note
<Murali Linares DO - Last Filed: 04/05/24 07:46>
-
Portions of this chart may have been created with voice recognition software.� Occasional wrong word or��sound alike� substitutions may have occurred due to the inherent limitations of voice recognition software.
Discharge Plan
Departure
Patient Disposition: Admit
Date of Disposition: 04/04/24
Time of Disposition: 01:07
Admit to: ICU
Presentation/result/management discussed w/ accepting MD/DO: Hospitalist
Discharge Problem:
Respiratory failure, Acute hyperglycemia, Altered mental status, Acute lactic acidosis
Interventions
Interventions:
*Risk Screen - Suicide Last Done: 04/04/24 10:18
*General Assessment Last Done: 04/04/24 03:16
*ED COVID-19 Vaccine History Last Done: 04/04/24 10:18
*Nursing Disposition Last Done: 04/04/24 06:16
ED- Neurological Assessment Last Done: 04/04/24 03:44
Discharge Date and Time
Discharge Date/Time: 04/04/24 06:17
[2024-04-04 00:02] LABS: Glucose - Point of Care 291 mg/dl (70-99)
[2024-04-04 00:07] LABS: Venous Blood Gas B.E. -23.9 mmol/L (-4 to +4); Venous Blood Gas HCO3 10.6 mmol/L (22-27); Venous Blood Gas O2 Sat % 67.3 %; Venous Blood Gas pCO2 68 mmHg (35-48); Venous Blood Gas pO2 59 mmHg (30-50)
[2024-04-04 00:09] LABS: % Basophils 0.1 % (0-2); % Immature Granulocytes 4.6 % (0-0.5); % Lymphocytes 33.7 % (20.5-51.1); % Monocytes 5.4 % (1.7-9.3); % Neutrophils 56.2 % (42.2-75.2); Absolute Immature Granulocytes 0.3 10^3/uL (0-0.05); Absolute Lymphocytes 2.4 10^3/uL (1.2-3.4); Absolute Monocytes 0.4 10^3/uL (0.1-0.6); Absolute Neutrophils 4.1 10^3/uL (1.4-6.5); Hemoglobin 10.5 g/dL (12.0-16.0); Mean Corp Hgb Conc. 32.8 g/dL (33.0-37.0); Mean Corpuscular Hgb 37.6 pg (27.0-31.0); Mean Corpuscular Volume 114.7 fL (81.0-99.0); Mean Platelet Volume 9.5 fL (7.4-10.4); Nucleated Red Blood Cells % 0.6 %; Platelet Count 195 10^3/uL (130-400); Red Blood Cell Count 2.79 10^6/uL (4.20-5.40); White Blood Cell Count 7.3 10^3/uL (4.8-10.8)
[2024-04-04 00:18] LABS: HCG, Serum Qualitative Screen Negative
[2024-04-04 00:33] LABS: ALT (SGPT) 105 U/L (0-35); AST (SGOT) 172 U/L (14-36); Acetaminophen < 10 ug/ml (10-30); Albumin 3.8 g/dl (3.5-5.0); Alcohol 153 mg/dl; Alkaline Phosphatase 51 U/L (38-126); B-Hydroxybutyrate 0.29 mmol/L (0.02-0.27); Blood Urea Nitrogen 10 mg/dl (7-17); Calcium 9.5 mg/dl (8.4-10.2); Carbon Dioxide 10 mmol/L (22-30); Chloride 105 mmol/L (98-107); Glucose 306 mg/dl (70-99); Lactic Acid 17.9 mmol/L (0.7-2.0); Potassium 3.5 mmol/L (3.5-5.1); Salicylate < 1.0 mg/dl (2.0-20.0); Sodium 145 mmol/L (135-145); Total Bilirubin 0.3 mg/dl (0.2-1.3); Total Protein 6.8 g/dl (6.3-8.2); eGFR 45.46
[2024-04-04 00:35] LABS: Urine Albumin Negative (Neg - Trace); Urine Bilirubin Negative (Negative); Urine Character Slightly Cloudy (Clear); Urine Color Straw; Urine Glucose Negative (Negative); Urine Ketone Negative (Negative); Urine Leukocyte Negative (Negative); Urine Nitrite Positive (Negative); Urine Occult Blood Negative (Negative); Urine Urobilinogen Negative (Neg - 1+)
[2024-04-04] MEDS: DIPRIVAN 100 IV ×2 (00:57→09:57)
[2024-04-04] MEDS: LEVOPHED 250 IV ×3 (01:03→12:46)
[2024-04-04 01:10] LABS: Urine Squamous Cell >30 /LPF (Few)
[2024-04-04 01:11] LABS: Urine Bacteria Moderate (Negative); Urine Red Blood Cell 0-2 /HPF (0-2)
[2024-04-04 01:18] LABS: Glucose - Point of Care 164 mg/dl (70-99)
[2024-04-04 01:23] LABS: Blood Urea Nitrogen 10 mg/dl (7-17); Calcium 7.9 mg/dl (8.4-10.2); Carbon Dioxide 5 mmol/L (22-30); Chloride 112 mmol/L (98-107); Estimated Creatinine Clearance 63 ml/min; Glucose 174 mg/dl (70-99); Sodium 146 mmol/L (135-145); eGFR 53.98
[2024-04-04 01:52] LABS: Glucose - Point of Care 111 mg/dl (70-99)
[2024-04-04 02:02] LABS: Amphetamines Negative (Negative); Barbiturates Negative (Negative); Benzodiazepines Negative (Negative); Buprenorphine Negative (Negative); Cocaine Negative (Negative); Marijuana Positive (Negative); Methadone Negative (Negative); Methamphetamines Negative (Negative); Opiates Negative (Negative); Phencyclidine Negative (Negative); Tricyclic Antidepressants Negative (Negative)
[2024-04-04 02:11] LABS: B.E. -23.2 mmol/L; PCO2 36 mmHg (32-35); PO2 334 mmHg (83-108)
[2024-04-04 02:12] LABS: Triglycerides 325 mg/dl (10-149)
[2024-04-04 02:13] LABS: HCO3 7.6 mmol/L (21-28); pH 6.93 (7.35-7.45)
[2024-04-04] MEDS: KCL 50 IV (02:14)
[2024-04-04] MEDS: SODIUM BICARBONATE 510 MEQ IV ×2 (02:14)
[2024-04-04 02:16] LABS: Osmolality Serum 347 mOsm/kg (275-300)
[2024-04-04] MEDS: ROCEPHIN 1000 MG IV (02:17)
[2024-04-04] MEDS: SODIUM BICARBONATE 1150 MEQ IV (02:23)
[2024-04-04] MEDS: SUBLIMAZE 25 MCG IV (02:42)
[2024-04-04 02:48] LABS: Glucose - Point of Care 71 mg/dl (70-99)
[2024-04-04 03:00] LABS: Lactic Acid 13.4 mmol/L (0.7-2.0)
[2024-04-04 03:01] LABS: Blood Urea Nitrogen 11 mg/dl (7-17); Carbon Dioxide 10 mmol/L (22-30); Chloride 114 mmol/L (98-107); Estimated Creatinine Clearance 63 ml/min; Glucose 61 mg/dl (70-99); Potassium 4.2 mmol/L (3.5-5.1); Sodium 145 mmol/L (135-145); eGFR 53.98
[2024-04-04 03:51] LABS: Glucose - Point of Care 85 mg/dl (70-99)
[2024-04-04 04:55] LABS: Lactic Acid 10.6 mmol/L (0.7-2.0)
[2024-04-04 05:08] LABS: Blood Urea Nitrogen 13 mg/dl (7-17); Calcium 6.8 mg/dl (8.4-10.2); Carbon Dioxide 14 mmol/L (22-30); Chloride 111 mmol/L (98-107); Estimated Creatinine Clearance 75 ml/min; Glucose 71 mg/dl (70-99); Potassium 3.9 mmol/L (3.5-5.1); Sodium 144 mmol/L (135-145); eGFR > 60.00
[2024-04-04 05:17] LABS: Glucose - Point of Care 103 mg/dl (70-99)
[2024-04-04 05:19] LABS: Hematocrit 22.9 % (37.0-47.0); Hemoglobin 8.2 g/dL (12.0-16.0)
--- NOTE | 2024-04-04 05:47 | CON.MD ---
Addendum entered and electronically signed by Alona Ferraro DO 04/04/24 14:41:
Due to requirement of pressors and drop in hgb decision made to perform exploratory laparotomy. Consented for exp lap possible unilateral salpingo-oopherectomy, or other indicated procedure due to difficulty determining exact source of pelvic mass
(ovarian vs uterine). Consented for procedure(s) needed in interest of controlling bleeding.
Original Note:
Consultation - Medical
-
38 yo female presented via ambulance unresponsive to ER. Became responsive after pressors and fluid. Was extubated in ER.
CT large pelvic mass 11.8 x 10cm in central pelvis to right of midline. Left gonadal vessels tracking into lesion. Mass contains multiple small low- attenuation foci. Large surrounding hematoma large volume hemoperitoneum. findings concerning for
ovarian torsion with rupture.
ROS: + abdominal pain, no N/V/D/C Reports was feeling well until last night.
PMH: alcohol abuse
PSH: negative; elective
OBHx: 1 miscarriage, 1 termination
GYNhx: does not routinely see global engineering manager. Unsure when last pap-several yrs. +hx chlamydia in past.
ALL: PCN/ Sulfa
Meds: denies
Sochx: Tobacco 1/2 PPD since age 15, drinks alcohol 5 beers daily, 1 shot whiskey daily, + marijuana use- cannot remember last use
Famhx: reports MGM lymphoma, MGF prostate cancer
PE: VSS afeb
Gen: NAD
Cor reg
Abd: soft +tenderness diffuse lower abdomen
pelvic exam deferred.
ext: no calf pain
AST 172
ALT 105
HCG neg
hgb dropped from 10 to 8.2
Blood ordered
A/P:
Pelvic mass suspicious for torsion with hemoperitoneum
Anemia- blood ordered
elevated transaminases
alcohol abuse
Recommend exploratory lap possible salpingo-oopherectomy.
Consent obtained. Spoke with her [id number].
[2024-04-04 06:09] LABS: INR 1.77; PT 20.8 Sec (11.4-14.6)
[2024-04-04 06:10] LABS: APTT 43.8 Sec (23.4-35.0)
[2024-04-04 06:11] LABS: Blood Urea Nitrogen 14 mg/dl (7-17); Carbon Dioxide 17 mmol/L (22-30); Chloride 110 mmol/L (98-107); Estimated Creatinine Clearance 75 ml/min; Glucose 107 mg/dl (70-99); Potassium 4.2 mmol/L (3.5-5.1); Sodium 142 mmol/L (135-145); eGFR > 60.00
--- NOTE | 2024-04-04 06:37 | HPS.HSE ---
Family Physician
-
Family Physician: Nesha Johnson NP
Chief Complaint
-
Abd Pain, N/V
History of Present Illness
Patient is a 38y F with no significant PMH who presents to ED unresponsive. History initially obtained from significant other and stepfather as patient was obtunded / unresponsive on arrival. Patient had reportedly had no recent symptoms,
illness, complaints, etc. This evening she was with friends / family and had dinner and some drinks after dinner. She began to complain of abdominal pain and lie down on the floor. She had multiple episodes of non-bloody emesis and some loose
stools at home and then became unresponsive. 911 was called and patient brought to the ED for further evaluation.
Upon initial arrival to the ED, patient was fully obtunded / unresponsive. She was intubated in the ED.
Patient was noted to be markedly hypotensive and acidotic on initial studies. She was treated with aggressive volume replacement, ventilatory support, pressors, etc.
Patient began to become more alert with church of perfusion and ultimately became fully awake despite sedation.
Patient was awake and able to follow commands and decision was made to extubate in the ED. Patient was extubated to nasal cannula. Patient was awake and interactive. She complained of abdominal pain and low back pain. She complained of dry
mouth. She did not recall any events leading up to her hospitalization and could not further explain any of this recent history.
Medical History
Past Medical History
Past Medical History: Reports None
Past Surgical History: Reports None
Social History
Tobacco: Smoker (Current everyday smoker.)
Alcohol: Daily (Drinks alcohol daily. 5+ drinks per day.)
Drug: Marijuana (Occasional THC)
Personal: Partner
Family History
Family History: Not pertinent
Allergies / Home Medications
Allergies reflects when Allergies were last updated in [facility].
Home Medications with original date entered in [employer]
Allergy/Medication List:
Allergies
Allergy/AdvReac Type Severity Reaction Status Date / Time
Penicillins Allergy Unknown Verified 04/04/24 04:11
Home Medications
No Meds [No Current Medications] 04/04/24
Review of Systems
-
History Source: Patient and Family
A 12 point ROS was completed and negative except as noted: Yes
Constitutional: Reports Fatigue; Denies Fever or Chills
EENT: Reports Other (Dry mouth)
Respiratory: Denies Cough or Trouble Breathing
Cardiac: Denies Chest Pain or Palpitations
Abdomen/GI: Reports Abdominal Pain, Nausea, Vomiting, Diarrhea and Bloody Stools
: Denies Dysuria or Frequency
Musculoskeletal: Reports Other (Back Pain.); Denies Joint Pain or Edema
Neurological: Denies Dizzy or Headache
Psych: Denies Depression or Anxiety
Physical Exam
Vital Signs
Vital Signs
Temp Pulse Resp BP Pulse Ox
97.2 F 129 31 90/53 100
04/04/24 05:19 04/04/24 06:00 04/04/24 06:00 04/04/24 06:00 04/04/24 06:00
Physical Exam
General: Other (Pale, ill-appearing 38y F in mild - moderate distress at times.)
HEENT: Other (Dry MM. neck supple.)
Respiratory: Clear; No Wheezes, Rales or Rhonchi
Cardiac: S1/S2 and Tachycardia; No Murmur
GI: Soft and Other (Abdomen is tender diffusely. Bowel sounds are diminshed. No visible ecchymosis.)
Musculoskeletal: No Clubbing, No Cyanosis and No Edema
Neuro: Awake, Alert and Oriented
Laboratory Results
-
04/04/24 04:52
04/04/24 05:50
Laboratory Results
pH 6.93 (7.35-7.45) L* 04/04/24 01:55
pCO2 36 mmHg (32-35) H 04/04/24 01:55
pO2 334 mmHg (83-108) H 04/04/24 01:55
HCO3 7.6 mmol/L (21-28) L* 04/04/24 01:55
Lactic Acid 10.6 mmol/L (0.7-2.0) H* 04/04/24 04:30
Total Bilirubin 0.3 mg/dl (0.2-1.3) 04/03/24 23:59
AST 172 U/L (14-36) H 04/03/24 23:59
ALT 105 U/L (0-35) H 04/03/24 23:59
Alkaline Phosphatase 51 U/L (38-126) 04/03/24 23:59
Impression/Plan
-
A/P: Patient is a 38y F with no noted PMH who presents to ED unresponsive after reported N/V/D at home this evening.
Pelvic Mass
Possible Ovarian Torsion / Rupture
Large Hemoperitoneum
- Patient to OR this AM from the ED.
- Follow for operative findings.
- Post op SALES SUPPORT CONSULTANT care per SALES SUPPORT CONSULTANT.
- Pain control, supportive care, etc.
Acute Blood Loss Anemia
Hypovolemic Shock secondary to the above
Acute TME secondary to the above
Lactic Acidosis
Hypothermia
- Suspect shock due to abrupt and significant blood / volume losses due to hemoperitoneum as noted above.
- PRBCs x 2 units ordered now.
- Follow H&H and provide additional blood product support if needed.
- Continue pressor support for now and adjust as needed / wean as able.
- OR to evaluate source of bleeding as noted above.
- Continue IVF support and follow serial lactate - improving thus far from 17 on arrival to 10 on most recent check.
- Temperature improved with Lucien hugger, church of perfusion, etc. Follow for changes.
- Computer [employer] Para Professional evaluation for additional recommendations.
Alcohol Use Disorder
Abnormal LFTs
- Patient notes that she drinks 5+ drinks per day. Was drinking this evening prior to onset of symptoms.
- Thiamine, folate, MVI replacement, etc.
- MSAS protocol and BZDs as needed for symptoms of withdrawal.
- Abnormal LFTs on arrival potentially secondary to EtOH use versus shock physiology. Follow for changes.
DVT Prophylaxis: SCDs
Code Status: Full
Patient seen and examined multiple times throughout the evening.
Case discussed with ED staff, SALES SUPPORT CONSULTANT, patient and family at the bedside on multiple occasions.
[2024-04-04 07:06] LABS: B.E. - POC -7.8 mmol/L; Glucose - POC 104 mg/dl (70-99); HCO3 - POC 18 mmol/L (21-28); Hematocrit - POC 21 % PCV (37-47); Hemodilution- POC Yes; Hemoglobin Calculated - POC 7.1; Ionized Calcium - POC 0.86 mmol/L (1.15-1.33); PCO2 - POC 36 mmHg (35-48); PO2 - POC 606 mmHg (83-108); Potassium - POC 4.1 mmol/L (3.5-5.1); Sodium - POC 143 mmol/L (136-145); Specimen Type - POC Arterial
[2024-04-04 08:39] LABS: Glucose - POC 87 mg/dl (70-99); HCO3 - POC 17 mmol/L (21-28); Hematocrit - POC 22 % PCV (37-47); Hemodilution- POC No; Hemoglobin Calculated - POC 7.6; Ionized Calcium - POC 0.92 mmol/L (1.15-1.33); Lactate - POC 2.48 mmol/L (0.36-0.75); PCO2 - POC 34 mmHg (35-48); PO2 - POC 599 mmHg (83-108); Potassium - POC 4.4 mmol/L (3.5-5.1); Sodium - POC 144 mmol/L (136-145); Specimen Type - POC Arterial; pH - POC 7.29 (7.35-7.45)
[2024-04-04 08:43] LABS: % Basophils 0.1 % (0-2); % Eosinophils 0.1 % (0-6); % Immature Granulocytes 1.9 % (0-0.5); % Lymphocytes 5.2 % (20.5-51.1); % Neutrophils 89.7 % (42.2-75.2); Absolute Immature Granulocytes 0.3 10^3/uL (0-0.05); Absolute Lymphocytes 0.9 10^3/uL (1.2-3.4); Absolute Monocytes 0.5 10^3/uL (0.1-0.6); Absolute Neutrophils 15.3 10^3/uL (1.4-6.5); Hematocrit 21.3 % (37.0-47.0); Hemoglobin 7.6 g/dL (12.0-16.0); Mean Corp Hgb Conc. 35.7 g/dL (33.0-37.0); Mean Corpuscular Hgb 36.5 pg (27.0-31.0); Mean Corpuscular Volume 102.4 fL (81.0-99.0); Nucleated Red Blood Cells % 0.2 %; Red Blood Cell Count 2.08 10^6/uL (4.20-5.40); Red Cell Dist. Width 14.1 % (11.5-14.5)
--- NOTE | 2024-04-04 09:08 | W.IMMPOSTOP ---
Surgical Immed Post Op Note
-
Primary Surgeon: Alejandra
Assisting Surgeon: Rick
Pre-op Diagnosis: Hemoperitoneum
Post-op Diagnosis: Hemoperitoneum
Procedure Performed: Exploratory laparotomy
Anesthesia Type: General
Specimen / Cultures: None from GS portion
Estimated Blood Loss: 11 cc from GS portion
Complications: None
Operative Findings:
1. At time of GS evaluation small, thin bloody drainage within pelvis, LUQ, and RUQ
2. All 4 quadrants of abdomen evaluated, no evidence of active bleeding, packing of RUQ and LUQ, thorough evaluation of spleen and liver without bleeding or laceration, SB run from LT to TI, normal colon and retroperitoneum, no blood within lesser
sac
3. 19 Fr AKHIL into pelvis and along LEFT colic gutter to LUQ
4. Abdomen closed with #1 PDS [employer]
--- NOTE | 2024-04-04 09:25 | CON.INTV ---
Consultation
Consultation Request
Date/Time Consultation Requested: 04/04/2024853
Date/Time Consultation Performed: 04/04/2024919
Requesting Provider: Dr. Wyatt
Performing Provider: Dr. Yepez
Reason for Consultation: Hemoperitoneum s/p OR
Medical History
-
Chief Complaint: Abd pain and nausea/vomiting
History of Present Illness:
38-year-old female with no known past medical history who was found unresponsive by fianc�. Patient was in her usual state of health 1 day prior to arrival. She had dinner with friends/family and drinks afterwards and then lay down on the floor
endorsing abdominal pain. She vomited multiple times with nonbloody emesis and had some loose stools at home and then became unresponsive. Patient was unresponsive to painful stimuli and then 911 called and she brought to the [facility]
for further evaluation. Initially she was hypothermic to 92.8 �F, bradycardic to 45, hypotensive to 55/32, breathing at 19 breaths/min and saturating 86% on room air. Initial labs showed Hb 10.5, WBC 7.3, severe metabolic acidosis with serum
bicarbonate level 10, lactate 17.9, blood gas pH 6.8 with pCO2 68, glucose 306, AST 172, ALT 105, negative beta-hCG, urinalysis positive for nitrites (despite greater than 30 urine squamous epithelial cells), with urine toxicology positive for THC.
CT chest/abdomen/pelvis showed moderate hemoperitoneum with a heterogeneous mass within the pelvis, with left ovarian vein possibly tracks of lesion. In the ER patient given ceftriaxone, fentanyl, propofol and started on Levophed. Gynecology +
general surgery consulted, and general surgery brought pt to the OR for ex lap and a fibroid on the uterus was removed. Pt was given TXA in OR, and clindamycin and gentamicin in OR. Pt then brought to ICU for further care, and asphalt heater tender services
consulted for additional management/recommendations.
Patient was seen and evaluated this morning. She remains intubated on AC/CMV at 16/550/100%/5 with PIP: 20 cmH2O, breathing at 16 breaths/minute and VTe 516 mL. Currently, heart rate 101, BP via A-line: 97/67, and saturating 100%. Currently on
Levophed at 14mcg/min and sedated with propofol at 25mcg/kg/min. Patient's Ck angulo, at bedside and answered all of his questions. Patient is starting to wake up as the sedation is being lowered and she remains calm and not in any pain.
Following commands.
PMHx: Tobacco use disorder + THC use
PSHx: Non-contributory
Past Medical History
Past Medical History: Other (Above as per HPI)
Past Surgical History: None
Social History
Tobacco: Smoker
Alcohol: None
Drug: Marijuana
Personal: Other (Engaged to adele Stover)
Living: Other
Family History
Family History: Reviewed & Not Pertinent
Allergies / Home Medications
Allergies
Allergy/AdvReac Type Severity Reaction Status Date / Time
Penicillins Allergy Unknown Verified 04/04/24 04:11
Home Medications
�Medication �Instructions �Recorded �Confirmed �Last Taken �Type
No Meds [No Current Medications] 04/04/24 04/04/24 Unknown History
Review of Systems
-
Unable to Obtain full review of systems at this time due to: Patient Intubation
Vitals / Labs / Diagnostic Testing
Vital Signs
Temp Pulse Resp BP Pulse Ox
97.2 F 129 31 90/53 100
04/04/24 05:19 04/04/24 06:00 04/04/24 06:00 04/04/24 06:00 04/04/24 06:00
Laboratory Results
04/04/24 04/04/24
01:55 05:50
PT 20.8 H
INR 1.77
APTT 43.8 H
pH 6.93 L*
pCO2 36 H
pO2 334 H
HCO3 7.6 L*
O2 Delivery Level
Diagnostic Testing:
Physical Exam
-
HEENT: Normocephalic, Anicteric and Other (ETT in place)
Cardiovascular: S1/S2, Peripheral Edema (negative) and Other (Tachycardic)
Respiratory: Wheeze (negative), Rales (negative), Rhonchi (negative), Non-Labored Respirations and Other (Mechanical breath sounds heard bilaterally)
GI: Soft, Non Distended, Non Tender and Normal Bowel Sounds
Neurology: Tremors (negative) and Other (Sedated)
Skin: Warm and Dry
General: Respiratory Distress (negative), Comfortable, Chills (negative) and Sweats (negative)
Assessment
-
Assessment: 38-year-old female with no known past medical history who was found unresponsive by fianc�. Patient was in her usual state of health 1 day prior to arrival. She had dinner with friends/family and drinks afterwards and then lay down on
the floor endorsing abdominal pain. She vomited multiple times with nonbloody emesis and had some loose stools at home and then became unresponsive. Patient was unresponsive to painful stimuli and then 911 called and she brought to the [facility] for further evaluation. Initially she was hypothermic to 92.8 �F, bradycardic to 45, hypotensive to 55/32, breathing at 19 breaths/min and saturating 86% on room air. Initial labs showed Hb 10.5, WBC 7.3, severe metabolic acidosis with
serum bicarbonate level 10, lactate 17.9, blood gas pH 6.8 with pCO2 68, glucose 306, AST 172, ALT 105, negative beta-hCG, urinalysis positive for nitrites (despite greater than 30 urine squamous epithelial cells), with urine toxicology positive for
THC. CT chest/abdomen/pelvis showed moderate hemoperitoneum with a heterogeneous mass within the pelvis, with left ovarian vein possibly tracks of lesion. In the ER patient given ceftriaxone, fentanyl, propofol and started on Levophed. Gynecology
+ general surgery consulted, and general surgery brought pt to the OR for ex lap and a fibroid on the uterus was removed. Pt was given TXA in OR, and clindamycin and gentamicin in OR. Pt then brought to ICU for further care, and asphalt heater tender
services consulted for additional management/recommendations.
Chronic conditions HOME STAGER: Tobacco use disorder + THC use
Impression:
#Hemoperitoneum s/p ex lap (POD #0) with removal of fibroid
#Hemorrhagic shock with severe lactic acidosis due to above
#Acute anemia due to above
#Acute thrombocytopenia likely due to consumption due to above
#Low fibrinogen level likely consumptive due to above
#Hyponatremia likely due to hyperglycemia
#Hyperglycemia
#Hypocalcemia
#Abnormal urinalysis with positive nitrites (however sample may be unreliable considering urine squamous epithelial cells >30)
#Marijuana use
Plan:
- Postoperative management as per general surgery; gynecology also consulted and recommendations appreciated
- Trend H/H and transfuse if needed to keep Hb>7g/dL; keep plt>50k
- Hold anticoagulants/antiplatelets for now
- Trend fibrinogen level --> if H&H is unstable or if she continues to bleed then would transfuse cryoprecipitate
- Continue with mechanical ventilation with daily SAT/SBT if clinically appropriate
- Trend FiO2 + PEEP to maintain SpO2 >90-94%
- Plan to awaken by stopping sedation with SBT and hopefully can extubate later this morning
- Keep NGT to LIWS while on mechanical ventilation
- prn nebulized bronchodilators - not currently bronchospastic
- UA is positive but unable to ask if any symptoms --> start empiric rocephin
- Follow up urine Cx
- Maintain SpO2 >90-94%
- Maintain MAP>65
- Replete calcium with goal corrected level of >8.3
- Continue to trend lactate until <2 mmol/L
- Replete electrolytes with K>4, Mg>2
- Maintain euglycemia with goal BG 140-180 and start ISS (moderate resistance); may need basal SQ insulin as well if BG remains >180
- Check A1C
- Trend sNa level with goal 135-145
- Once extubated, encourage incentive spirometer 10x per hour for at least 4 hrs a day
- Can stop stress ulcer prophylaxis once extubated
- DVT ppx: SCDs for now given acute hemoperitoneum
Critical care statement: A total of 40 minutes of critical care time was provided for this patient today. This includes management of unstable vital signs, evaluation of the patient at bedside, reviewing the patient's pertinent medical records
including radiographs, microbiology, laboratory evaluations, and discussion with primary team, consultants, pharmacy, nutrition, physical therapy, case management, charge nurse, critical care nursing, and respiratory therapy.
Data:
CT chest/abdomen/pelvis with IV contrast 04/04/2024:
1. Moderate hemoperitoneum.
2. Heterogeneous mass within the pelvis, left ovarian vein possibly tracks to the lesion. Findings are concerning for ovarian torsion with hemorrhage. Ruptured ectopic would also be in the differential diagnosis, although the patient's
beta hCG was negative.
Abd US 04/04/2024: Hepatic fatty infiltration.
--- NOTE | 2024-04-04 09:30 | PTCARENOTE ---
Received patient direct back from OR. patient is intubated, number 7 ETT at 22cm at lip, vent settings to be ordered. AC 16/550/5/100%. Saturation is 100%. She is sinus tach on monitor, levophed at 14mcg for MAP >65. A-line correlating with cuff.
Patient is NPO, right nare [place] sump to low intermittent suction, colunga for urine. will review/obtain orders,
[2024-04-04] MEDS: GENTAMICIN 60 MG IV (09:31)
[2024-04-04] MEDS: CLEOCIN 50 IV (09:32)
[2024-04-04 09:40] LABS: Mean Platelet Volume 9.9 fL (7.4-10.4); Platelet Count 93 10^3/uL (130-400)
[2024-04-04] MEDS: NSS 1000 IV ×2 (09:56→17:16)
[2024-04-04] MEDS: FOLVITE PO (10:00)
[2024-04-04 10:19] LABS: B.E. -3.1 mmol/L; HCO3 20.9 mmol/L (21-28); O2 Saturation % 99.5 % (94-98); PCO2 33 mmHg (32-35); PO2 438 mmHg (83-108); pH 7.41 (7.35-7.45)
[2024-04-04 10:33] LABS: Hematocrit 29.6 % (37.0-47.0); Hemoglobin 10.8 g/dL (12.0-16.0); Lactic Acid 2.4 mmol/L (0.7-2.0)
[2024-04-04 10:44] LABS: Fibrinogen 77 MG/DL (199-459)
[2024-04-04 11:10] LABS: Triglycerides 192 mg/dl (10-149)
[2024-04-04] MEDS: ZOFRAN 4 MG IV (11:10)
[2024-04-04 11:53] LABS: Glucose - Point of Care 147 mg/dl (70-99)
[2024-04-04] MEDS: SODIUM BICARBONATE IV (12:14)
[2024-04-04 12:45] LABS: HCO3 19.8 mmol/L (21-28); PCO2 35 mmHg (32-35); PO2 186 mmHg (83-108); pH 7.36 (7.35-7.45)
--- NOTE | 2024-04-04 12:53 | W.PN.HOSP.TC ---
Addendum entered and electronically signed by Malick Nails MD 04/04/24 14:27:
nonbillable note
Original Note:
Today's Communication/Plan
-
- consult screen printing cloth spreader
- Trend cbc, bmp
Assessment / Plan
Assessment / Plan
Possible ovarian torsion/rupture with hemoperitoneum
Acute hypovolemic shock
Acute blood loss:
-Patient had exploratory laparotomy today for hemoperitoneum, she is post op day 1, currently intubated
-All 4 quadrants of abdomen evaluated no active evidence of active bleeding
- on admission, fibrinogen levels 77, PT 20.8 and APTT 43.8, platelet count 93 indicating an active bleed, trend fibrinogen
-On admission blood pressure was 55/32 today it is 128/83 and well-controlled, packed red blood cells 2 units ordered for low hemoglobin, follow H&H, pressor support with norepinephrine, intravenous fluids
-Pain control with fentanyl citrate, acetaminophen 650
- Supportive care with IV fluids
-Consult screen printing cloth spreader
Primary metabolic acidosis:
- VBG indicates a primary metabolic acidosis
- Continue to trend lactic acid
Elevated transaminases:
-AST 172 and ALT 105
-Ordered right upper quadrant abdominal ultrasound, pending
Hypertriglyceridemia:
-Levels 192, most likely due to alcohol abuse, continue to follow
Macrocytic anemia:
-MCV is 102 and most recent hemoglobin is 10.8, hematocrit 29.6
-Most likely due to alcohol use
Alcohol use disorder:
-Start MSAS protocol with folate, thiamine, Ativan
Marijuana abuse:
- urine drug screen positive
- Pouch Maker patient on cessation
Leukocytosis:
-Today's WBC count of 17.2, patient is afebrile, status post surgery
-Most likely reactive continue to trend
Anticipated Discharge: 24 - 48 hours
Subjective/Interval History
-
Date of Service: April 04, 2024
30-year-old female 2 para 0 with no significant past med history presented to the ED in an unresponsive state. She was friend/family had some drinks after dinner, then complained of abdominal pain, started to lie down on the floor regarding
the pain and she had episodes of vomiting loose stools at home and then became unresponsive. She was then intubated noted be hypotensive and acidotic, treated with volume replacement, pressors, ventilator support and became fully awake. She was in
extubated to nasal cannula. She was transferred to surgery where she had an exploratory laparotomy with myomectomy and then subsequently intubated and transferred to the ICU currently on propofol norepinephrine intravenous fluids
Objective Data
-
Labs:
Laboratory Results
04/04/24 04/04/24 04/04/24
00:54 01:55 02:10
WBC
Hgb
Hct
Plt Count
PT
INR
APTT
HCO3 7.6 L*
Sodium 146 H 145
Potassium 4.2
Chloride 112 H 114 H
Carbon Dioxide 5 L* 10 L*
BUN 10 11
Creatinine 1.3 H 1.3 H
Glucose 174 H 61 L
Calcium 7.9 L D 7.0 L
04/04/24 04/04/24 04/04/24
04:30 04:52 05:50
WBC
Hgb 8.2 L D
Hct 22.9 L
Plt Count
PT 20.8 H
INR 1.77
APTT 43.8 H
HCO3
Sodium 144 142
Potassium 3.9 4.2
Chloride 111 H 110 H
Carbon Dioxide 14 L* 17 L
BUN 13 14
Creatinine 1.1 H 1.1 H
Glucose 71 107 H
Calcium 6.8 L* 7.0 L
04/04/24 04/04/24 04/04/24
07:41 10:10 10:36
WBC 17.0 H
Hgb 7.6 L 10.8 L D
Hct 21.3 L 29.6 L
Plt Count 93 L D
PT
INR
APTT
HCO3 20.9 L
Sodium Cancelled Cancelled
Potassium Cancelled Cancelled
Chloride Cancelled Cancelled
Carbon Dioxide Cancelled Cancelled
BUN Cancelled Cancelled
Creatinine Cancelled Cancelled
Glucose Cancelled Cancelled
Calcium Cancelled Cancelled
04/04/24 04/04/24 04/04/24
12:05 12:30 14:54
WBC
Hgb Pending
Hct Pending
Plt Count
PT
INR
APTT
HCO3 19.8 L
Sodium Pending Pending
Potassium Pending Pending
Chloride Pending Pending
Carbon Dioxide Pending Pending
BUN Pending Pending
Creatinine Pending Pending
Glucose Pending Pending
Calcium Pending Pending
04/04/24
20:54
WBC
Hgb Pending
Hct Pending
Plt Count
PT
INR
APTT
HCO3
Sodium Pending
Potassium Pending
Chloride Pending
Carbon Dioxide Pending
BUN Pending
Creatinine Pending
Glucose Pending
Calcium Pending
Vital Signs:
Vital Signs
Temp Pulse Resp BP Pulse Ox
98.5 F 101 21 128/83 100
04/04/24 11:58 04/04/24 12:47 04/04/24 12:47 04/04/24 09:30 04/04/24 12:47
I&O
04/03/24 04/04/24 04/05/24
06:59 06:59 06:59
Intake Total 125 / 125
Output Total 820 / 820
Balance -695 / -695
Review of Systems
-
Unable to obtain full review of systems at this time due to: Patient Intubation and Patient Non-verbal
Physical Exam
-
General: Intubated
Respiratory: Clear to Auscultation
Cardiac: Regular Rhythm, S1/S2 and Tachycardic
GI: Soft, Nondistended and Tender
Musculoskeletal: No Clubbing, No Cyanosis and No Edema
Skin: Warm and Dry
Data Reviewed
-
Medical Tests (Nuc Med, Echo etc): Image personally visualized and interpreted and Discussed with Physician
Labs: Labs Reviewed by me and Discussed with Physician
[2024-04-04 12:56] LABS: Blood Urea Nitrogen 13 mg/dl (7-17); Calcium 5.3 mg/dl (8.4-10.2); Carbon Dioxide 17 mmol/L (22-30); Chloride 112 mmol/L (98-107); Estimated Creatinine Clearance 103 ml/min; Glucose 200 mg/dl (70-99); Potassium 4.1 mmol/L (3.5-5.1); Sodium 139 mmol/L (135-145); eGFR > 60.00
--- NOTE | 2024-04-04 13:00 | PTCARENOTE ---
Sucessfully weaned and extubated patient. now off levophed gtt as well.
--- NOTE | 2024-04-04 13:25 | CM ---
CM following re: discharge planning.
Discussed in rounds, reviewed pt's chart, met with pt. pt's father and pt's boyfriend David at bedside.
Pt is a 38 year old female, admitted with primary dx of Acute hypovolemic shock. Exploratory laparotomy procedure performed today, admitted to [facility] intubated, now extubated.
Pt allowed her father and her boyfriend to present during interview. Pt reports she lives with boyfriend David in a 2SH, 1 step to enter, has no children, has supportive parents. Pt stated her mother is on the way here. 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 Pt's boyfriend stated he also drinks with the pt at home. Pt's father stated he drinks occasionally beer but in the past he was a heavy drinker and stated he is
aime to move away from heavy drinking. Counseling on cessation of drinking offered and provided. pt expressed her agreement to meet with [facility] team. A referral to [facility] made, spoke to ZIGGY Melo and he will meet with pt and her boyfriend tomorrow.
Pt is requested her boyfriend be presented and boyfriend David expressed his agreement.
PCP: Nesha Johnson
Pharmacy: [facility].
D/C plan: home with [facility] to follow.
CM will follow with discharge plan updates as hospitalization progresses
[2024-04-04] MEDS: THIAMINE INJECTION 200 MG IV ×2 (13:35→20:14)
[2024-04-04] MEDS: PROTONIX IV 40 MG IV (13:35)
--- NOTE | 2024-04-04 14:41 | W.IMMPOSTOP ---
Surgical Immed Post Op Note
-
Primary Surgeon: Alona Ferraro DO and Dr. Roberts ( after intraop consult)
Furniture Mechanic: JAY Moore
Pre-op Diagnosis: Pelvic mass suspicious for ovarian mass with torsion; hemoperitoneum, hypovolemic shock.
Post-op Diagnosis: same; large uterine fibroid; endometriosis on left ovary
Procedure Performed: Exploratory laparotomy, abdominal myomectomy, fulgeration endometriosis
Anesthesia Type: general ET, Dr. Alejandre
Specimen / Cultures: uterine fibroid
Estimated Blood Loss: 1400ml of hemoperitoneum removed from abdominal cavity.
Preop abx: Gentamicin 400mg IV and Clindamycin 900mg IV
Complications: none
Operative Findings: Large amount of hemoperitoneum and clot estimated approx 1400ml. Uterus normal size with large 12cm left posterior fundal exophytic fibroid with base approx 4cm. Right tube and right ovary normal size and appearance. Left tube
normal appearance. Left ovary with superficial endometriosis (fulgerated). No bleeding noted coming from extern structures upon inspection.
Fluid replacement: 2 L NSS, 2L normosol, 2U PRBCs
Urine output 200ml clear yellow.
Dr. Roberts completed closure and confirmed counts.
[2024-04-04] MEDS: CALCIUM GLUCONATE 100 IV (14:54)
[2024-04-04] MEDS: DILAUDID 0.5 MG IV (15:41)
--- NOTE | 2024-04-04 16:00 | PTCARENOTE ---
Ultrasound of abdomen completed at bedside. Patient continues to ask for something to drink. Educated patient on NPO status, NG tube necessity, etc. swabs and mouth care provided for comfort
[2024-04-04 16:07] LABS: Hematocrit 24.3 % (37.0-47.0); Hemoglobin 9.1 g/dL (12.0-16.0)
[2024-04-04 16:23] LABS: Blood Urea Nitrogen 17 mg/dl (7-17); Calcium 6.8 mg/dl (8.4-10.2); Carbon Dioxide 21 mmol/L (22-30); Chloride 104 mmol/L (98-107); Estimated Creatinine Clearance 92 ml/min; Glucose 300 mg/dl (70-99); Potassium 4.7 mmol/L (3.5-5.1); Sodium 133 mmol/L (135-145); eGFR > 60.00
[2024-04-04] MEDS: STERILE WATER FOR INJECTION 20 ML IV (17:16)
[2024-04-04] MEDS: ROCEPHIN 2000 MG IV (17:16)
[2024-04-04 17:21] LABS: Glucose - Point of Care 129 mg/dl (70-99)
--- NOTE | 2024-04-04 20:00 | PTCARENOTE ---
Received patient AAOx3, following commands, denying pain, REYES, family at bedside. Normal sinus/sinus tach, 90s-110s. BP stable, 110s/50s, normothermic. SCDs on. 98% on room air, lung sounds diminished throughout. No BM, abdomen round, tender to
palpation, hypoactive bowel sounds. Midline incision with primaseal dressing, old drainage. Right AKHIL drain putting out sanguineous fluid. Right nare [place] sump to LIWS, flushed Q4 with tap water. Cm in place draining yellow urine. Right radial
valeri zeroed, flushed, and leveled. Left triple lumen femoral line patent, WNL, NSS gtt ongoing per order. PIVs patent, WNL. Cm care done, patient brushed teeth, repositioned. Call gomez within reach.
[2024-04-04 20:37] LABS: Hematocrit 23.7 % (37.0-47.0); Hemoglobin 8.5 g/dL (12.0-16.0)
[2024-04-04 20:53] LABS: Lactic Acid 1.7 mmol/L (0.7-2.0)
[2024-04-04 20:55] LABS: Blood Urea Nitrogen 19 mg/dl (7-17); Calcium 6.9 mg/dl (8.4-10.2); Carbon Dioxide 24 mmol/L (22-30); Chloride 109 mmol/L (98-107); Estimated Creatinine Clearance 82 ml/min; Glucose 121 mg/dl (70-99); Potassium 4.5 mmol/L (3.5-5.1); Sodium 140 mmol/L (135-145); eGFR > 60.00
[2024-04-04] MEDS: CALCIUM GLUCONATE 130 MG IV (21:30)
[2024-04-04 23:40] LABS: Glucose - Point of Care 118 mg/dl (70-99)
[2024-04-05] VITALS (20 sets, daily range): BP systolic 94–130; BP diastolic 60–88; BMI 26.0
--- NOTE | 2024-04-05 00:26 | PTCARENOTE ---
Calcium repleted, otherwise patient assessment unchanged from previous. Call gomez within reach.
[2024-04-05] MEDS: DILAUDID 0.5 MG IV ×4 (00:31→17:07)
[2024-04-05] MEDS: DILAUDID 0.25 MG IV ×2 (02:19→09:43)
[2024-04-05] MEDS: NSS 1000 IV ×2 (03:13→11:12)
[2024-04-05 03:41] LABS: Hematocrit 22.2 % (37.0-47.0); Hemoglobin 8.2 g/dL (12.0-16.0); Mean Corp Hgb Conc. 36.9 g/dL (33.0-37.0); Mean Corpuscular Hgb 35.7 pg (27.0-31.0); Mean Corpuscular Volume 96.5 fL (81.0-99.0); Mean Platelet Volume 9.7 fL (7.4-10.4); Platelet Count 75 10^3/uL (130-400); Red Cell Dist. Width 16.2 % (11.5-14.5); White Blood Cell Count 13.4 10^3/uL (4.8-10.8)
[2024-04-05 03:57] LABS: Fibrinogen 127 MG/DL (199-459)
[2024-04-05 04:21] LABS: Blood Urea Nitrogen 20 mg/dl (7-17); Calcium 7.8 mg/dl (8.4-10.2); Carbon Dioxide 25 mmol/L (22-30); Chloride 109 mmol/L (98-107); Estimated Creatinine Clearance 92 ml/min; Glucose 112 mg/dl (70-99); Magnesium 1.6 mg/dl (1.6-2.3); Phosphorus 3.6 mg/dl (2.5-4.5); Potassium 4.4 mmol/L (3.5-5.1); Sodium 137 mmol/L (135-145); eGFR > 60.00
[2024-04-05 05:45] LABS: Glucose - Point of Care 107 mg/dl (70-99)
--- NOTE | 2024-04-05 07:16 | W.PN.OBG.DWH ---
Today's Communication / Plan
-
Serial H/H
post analgesia
diet per gen surg
Assessment/Plan
-
POD#1 s/p Exploratory Laparotomy Abd myomectomy
Hemoperitoneum-unclear source
Anemia-hgb stable 8
Cont med mgmt
OOB
diet per gen surg
Subjective Data
-
POD#1 S/P Exp Lap
Pt feeling ok. Thinks she got her period.
Adequate pain control
Objective Data
-
Laboratory Results
04/05/24 03:17
04/05/24 03:17
Vital Signs
Temp Pulse Resp BP Pulse Ox
98.6 F 80 4 94/64 94
04/05/24 03:21 04/05/24 06:00 04/05/24 06:00 04/05/24 06:00 04/05/24 06:00
Gen: AAO x3, no acute distress
VSS afeb
Cor: regular
Abd: soft NDNT dressing with min drainage
ext: no calf pain , scds on
[2024-04-05] MEDS: THIAMINE INJECTION 200 MG IV ×2 (07:28→20:31)
--- NOTE | 2024-04-05 08:26 | W.PN.INTV ---
Today's Communication / Plan
Recommendations
Pain control
Serial H&H and transfuse to keep Hb >7 g/dL; keep plt>50k
Encourage incentive spirometer
Maintain SpO2 >90-94%
Postoperative management as per general surgery
Gynecology recommendations appreciated
Patient is stable for downgrade out of ICU to telemetry. This was confirmed with General Surgery who agrees (Dr. Roberts) - Once downgraded then we will sign off. Please re-consult if there are any additional questions or concerns.
Assessment
-
Assessment: 38-year-old female with no known past medical history who was found unresponsive by fianc�. Patient was in her usual state of health 1 day prior to arrival. She had dinner with friends/family and drinks afterwards and then lay down on
the floor endorsing abdominal pain. She vomited multiple times with nonbloody emesis and had some loose stools at home and then became unresponsive. Patient was unresponsive to painful stimuli and then 911 called and she brought to the [facility] for further evaluation. Initially she was hypothermic to 92.8 �F, bradycardic to 45, hypotensive to 55/32, breathing at 19 breaths/min and saturating 86% on room air. Initial labs showed Hb 10.5, WBC 7.3, severe metabolic acidosis with
serum bicarbonate level 10, lactate 17.9, blood gas pH 6.8 with pCO2 68, glucose 306, AST 172, ALT 105, negative beta-hCG, urinalysis positive for nitrites (despite greater than 30 urine squamous epithelial cells), with urine toxicology positive for
THC. CT chest/abdomen/pelvis showed moderate hemoperitoneum with a heterogeneous mass within the pelvis, with left ovarian vein possibly tracks of lesion. In the ER patient given ceftriaxone, fentanyl, propofol and started on Levophed. Gynecology
+ general surgery consulted, and general surgery brought pt to the OR for ex lap and a fibroid on the uterus was removed. Pt was given TXA in OR, and clindamycin and gentamicin in OR. Pt then brought to ICU for further care, and packaging sales
services consulted for additional management/recommendations.
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
Impression:
#Hemoperitoneum s/p ex lap (POD #1) with removal of fibroid
#Hemorrhagic shock with severe lactic acidosis due to above - shock state now resolved
#Lactic acidosis - now resolved
#Acute anemia due to above
#Acute thrombocytopenia likely due to consumption due to above
#Low fibrinogen level likely consumptive due to above
#Hyponatremia likely due to hyperglycemia - resolved
#Hyperglycemia - resolved
#Hypocalcemia
#Abnormal urinalysis with positive nitrites (however sample may be unreliable considering urine squamous epithelial cells >30) - E. coli seen on UCx
#Marijuana use
Plan:
- Postoperative management as per general surgery; gynecology also consulted and recommendations appreciated
- Trend H/H and transfuse if needed to keep Hb>7g/dL; keep plt>50k
- Hold anticoagulants/antiplatelets for now
- Trend fibrinogen level --> if H&H is unstable or if she continues to bleed then would transfuse cryoprecipitate
- Patient was extubated on 04/04/2024 and has been doing well now on room air however is hypoxic to 90-93% likely due to hypoventilation from shortness of breath when she takes a deep breath with hypoventilatio
- Maintain SpO2 >90-94%
- NGT now removed
- prn nebulized bronchodilators - not currently bronchospastic
- UA is positive but unable to ask if any symptoms --> continue empiric rocephin
- Urine culture is positive for E. coli � follow-up sensitivities
- Maintain SpO2 >90-94%
- Maintain MAP>65
- now off all vasopressors
- Replete calcium with goal corrected level of >8.3
- No longer need to continue trending lactate as it is <2 mmol/L
- Replete electrolytes with K>4, Mg>2
- Maintain euglycemia with goal BG 140-180; can stop ISS as BG have remained at goal
- A1C: 4.8 from 04/05/2024
- Trend sNa level with goal 135-145
- Ok for clear liquid diet - this was confirmed with surgery
- Encourage incentive spirometer 10x per hour for at least 4 hrs a day
- Can stop stress ulcer prophylaxis
- DVT ppx: SCDs for now given recent acute hemoperitoneum with slowly downtrending H/H and low plt count; once her CBC is stable for >24-48 hours then would start chemical prophylaxis at that time if she remains hospitalized
Patient is stable for downgrade out of ICU to telemetry. This was confirmed with general surgery who agrees (Dr. Roberts) - Once downgraded then we will sign off. Thank you for allowing us to be involved in the care of this patient. Please
reconsult if there are any additional questions or concerns.
Total time spent today was 76 minutes for this encounter. Time includes reviewing laboratory test/imaging results, reviewing pertinent medical records, obtaining and reviewing medical history, performing an appropriate exam, ordering medications,
tests and procedures. Time also includes documentation of this encounter, coordinating patient care and communicating with other healthcare professionals. Total time does not include separately billed tests performed on this date of service.
Data:
CT chest/abdomen/pelvis with IV contrast 04/04/2024:
1. Moderate hemoperitoneum.
2. Heterogeneous mass within the pelvis, left ovarian vein possibly tracks to the lesion. Findings are concerning for ovarian torsion with hemorrhage. Ruptured ectopic would also be in the differential diagnosis, although the patient's
beta hCG was negative.
Abd US 04/04/2024: Hepatic fatty infiltration.
Subjective Dataa
Subjective Data
Date of Service:
Date of Service: April 05, 2024
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
Subjective:
Patient was seen and evaluated this morning. Off Levophed since yesterday afternoon. Currently, heart rate 61, BP 111/74 and saturating 98% on 2 L/min. She continues to have abdominal pain. Patient's Ck angulo, at bedside and all questions
were answered. She is sleepy but answering all questions appropriately. She continues to have a left femoral central line and also has a AKHIL drain in her right lower quadrant which was placed from the OR.
Review of Systems
General: Other (Negative unless mentioned above)
Objective Data
Data Reviewed
Vital Signs / I&O / Oxygen:
Vital Signs
Temp Pulse Resp BP Pulse Ox
98.4 F 88 21 110/84 98
04/05/24 07:48 04/05/24 08:30 04/05/24 08:30 04/05/24 08:00 04/05/24 08:39
Intake and Output
04/04/24 04/05/24 04/06/24
06:59 06:59 06:59
Intake Total 2565 / 2690 290 / 290
Output Total 3380 / 3380 20 / 20
Balance -815 / -690 270 / 270
SaO2 [CPAP/PSV] 100
SaO2 98
Nasal Cannula flow liters per 2
minute
Physical Exam
General: Respiratory Distress (negative), Pain (lower abdomen), Chills (negative) and Sweats (negative)
HEENT: Normocephalic and Anicteric
Cardiovascular: S1-S2, Murmur (negative), Rub (negative) and Peripheral Edema (negative)
Respiratory: Wheeze (negative), Crackles (negative), Rhonchi (negative), Non-Labored Respirations and Other (Diminished breath sounds bilaterally)
GI: Soft, Non Distended, Tender (Tender to palpation in the hypogastrium) and Normal Bowel Sounds
Neurology: Tremors (negative) and Lethargic (Easily arousable to voice and following all commands, answering questions appropriately)
Skin: Warm and Dry
Labs/Micro/Reports
Lab Data
04/05/24 03:17
04/05/24 03:17
Laboratory Results
04/04/24 04/04/24
10:10 12:30
pH 7.41 7.36
pCO2 33 35
pO2 438 H 186 H
HCO3 20.9 L 19.8 L
O2 Delivery Level
--- NOTE | 2024-04-05 08:42 | PTCARENOTE ---
pt wakes to name. states 01/10 abd pain. pain med given as ordered. midline inc dressing intact with old drainage. hypoactive bowels sounds. ngt placement checked and flushed. valeri in place. colunga in place. ivf running as ordered. o2 sat 89%
on room air placed on 2lnc and encouraged to cough and deep breath. pt states it hurts to much. gave pt ice pack for cramping pains.
[2024-04-05] MEDS: FOLVITE PO (08:58)
[2024-04-05 09:04] LABS: Glycohemoglobin (HgbA1c) 4.8 % (4.0-5.6)
--- NOTE | 2024-04-05 11:10 | PTCARENOTE ---
ngt and a line removed as ordered.
--- NOTE | 2024-04-05 12:47 | W.PN.HOSP.TC ---
Addendum entered and electronically signed by Malick Nails MD 04/05/24 17:31:
Hemorrhagic shock secondary to hemoperitoneum s/p ex lap pod 1 with myomectomy
-s/p 2u prbc
-hgb stable now, transfuse hgb<7
-kitchenhand and surgery following
-AKHIL drains remain in place
-Wean pressors as tolerated
Alcohol use disorder
-drinks 6alcohol beverages daily, (combincation of beer, liquor and clayton beer cocktail.
-Msas
-thiamine
-folate
Metabolic acidosis
-resolved
Original Note:
Today's Communication/Plan
-
.
Assessment / Plan
Assessment / Plan
Possible ovarian torsion/rupture with hemoperitoneum
Acute hypovolemic shock
Acute blood loss:
-Patient had exploratory laparotomy for hemoperitoneum, she is post op day 2, currently on room air
- on admission, fibrinogen levels 127 trending up, platelet count 75 trending down, indicating an active bleed, trend fibrinogen
- blood pressure was 110/84 and well-controlled,
- follow H&H and transfuse if hgb is less than 7,
- MAP more than 65
-Pain control with dialudid and acetaminophen 650 as needed
- IVf as needed
- Gyneac following
- Drafting Clerk following
UTI?:
- Urinary analysis shows positive nitrate
- Culture sent, pending
- Patient started on empiric Rocephin
Primary metabolic acidosis:
- VBG indicates a primary metabolic acidosis
- Continue to trend lactic acid
Elevated transaminases:
- Abdominal u/s showed hepatic fatty infiltration
Hypertriglyceridemia:
-Levels 192, most likely due to alcohol abuse, continue to follow
Macrocytic anemia:
-MCV is 102 and most recent hemoglobin is 8.2, hematocrit 22.2
-Most likely due to alcohol use
Alcohol use disorder:
- Her MSAS score is 0
-Continue MSAS protocol with folate, thiamine, Ativan
Marijuana abuse:
- urine drug screen positive
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
Leukocytosis:
-Today's WBC count of 13.4 and trending down, patient is afebrile, status post surgery
-Most likely reactive continue to trend
Anticipated Discharge: 24 - 48 hours
Subjective/Interval History
-
Date of Service: April 05, 2024
Pts oxygen level dropped down to 88% overnight. Was placed on nasal cannula.
Patient is complaining of pain in her throat from where she intubated, and her incision sites from her exploratory laparotomy.
Objective Data
-
Labs:
Laboratory Results
04/05/24 04/05/24 04/05/24
03:17 03:17 03:17
WBC 13.4 H
Hgb Cancelled 8.2 L
Hct Cancelled 22.2 L
Plt Count 75 L
Sodium 137
Potassium 4.4
Chloride 109 H
Carbon Dioxide 25
BUN 20 H
Creatinine 0.9
Glucose 112 H
Calcium 7.8 L
Vital Signs:
Vital Signs
Temp Pulse Resp BP Pulse Ox
97.7 F 88 21 110/84 98
04/05/24 11:18 04/05/24 08:30 04/05/24 08:30 04/05/24 08:00 04/05/24 08:39
I&O
04/04/24 04/05/24 04/06/24
06:59 06:59 06:59
Intake Total 2565 / 2690 990 / 990
Output Total 3380 / 3380 230 / 230
Balance -815 / -690 760 / 760
Review of Systems
-
History Source: Patient
Constitutional: Denies Fever or Chills
EENT: Reports Other (Throat pain )
Respiratory: Denies Cough or Trouble Breathing
Cardiac: Denies Chest Pain, Diaphoresis, Palpitations, Syncope or PND
Abdomen/GI: Reports Abdominal Pain (near incision site); Denies Nausea, Vomiting, Diarrhea or Constipated
Genitourinary: Denies Dysuria
Physical Exam
-
Respiratory: Clear to Auscultation
Cardiac: Regular Rhythm and S1/S2
GI: Soft, Nondistended, Normal Bowel Sounds and Tender (near incision site )
Musculoskeletal: No Clubbing, No Cyanosis and No Edema
Neuro: Awake, Alert, Oriented and AO x 3
Data Reviewed
-
Medical Tests (Nuc Med, Echo etc): Image personally visualized and interpreted and Discussed with Physician
Labs: Labs Reviewed by me and Discussed with Physician
[2024-04-05] MEDS: ROXICODONE 5 MG PO (13:19)
[2024-04-05] MEDS: MAGNESIUM OXIDE 500 MG PO (13:19)
[2024-04-05] MEDS: TYLENOL 650 MG PO ×3 (13:19→21:38)
--- NOTE | 2024-04-05 13:22 | W.PN.ANS.POP ---
Anesthesia Post Operative
- Anesthesia Post Op Note
Vital Signs Stable-See Nursing Note: Yes
Airway Patent: Yes
Adequate Pain Control: Yes
Change in Mental Status: No
Current Postoperative Nausea & Vomiting: No
Anesthesia Complications: No
General Anesthetic Recall: No
Unplanned Admission: No
Post Op Hydration Adequate: Yes
[2024-04-05 13:30] LABS: Glucose - Point of Care 96 mg/dl (70-99)
--- NOTE | 2024-04-05 14:37 | W.PN.GS2 ---
Today's Communication / Plan
-
-- DC NGT, trial of clears, risks of ileus explained
-- Pain meds as needed, if next Hb stable OK to start Toradol and DVT prophylaxis
-- Maintain AKHLI for now
-- Trend Hb
-- OK to transfer to floors from surgical perspective
Assessment / Plan
-
Patient is a 38 yo F p/w hemorrhagic shock POD#1 s/p exploratory laparotomy and myomectomy
Recovering well. Extubated and weaned off pressors. Tachycardia has resolved. Blood pressure soft but stable. Last 2 hemoglobin checks around 8. AKHIL outputs reassuring. Low concern for continued active blood loss at this time.
-- DC NGT, trial of clears, risks of ileus explained
-- Pain meds as needed, if next Hb stable OK to start Toradol and DVT prophylaxis
-- Maintain AKHIL for now
-- Trend Hb
-- OK to transfer to floors from surgical perspective
Subjective Data
-
Date of Service: April 05, 2024
Reports some incisional soreness. No nausea or vomiting. No flatus or BM. No fevers. Denies dizziness or lightheadedness.
Objective Data
-
Intake and Output
04/04/24 04/05/24 04/06/24
06:59 06:59 06:59
Intake Total 2565 / 2690 1115 / 1115
Output Total 3380 / 3380 280 / 280
Balance -815 / -690 835 / 835
Intake:
Oral fluids 200 / 200
IV fluids (Total) 2374 / 2499 / 87
Nss 1,000 ml @ 125 mls/hr IV . 2374 / 87
Q8H [facility] Rx#:[id number]
IV piggybacks 130 / 130
Amount instilled into GI Tube ( 60 / 60 40 / 40
Total)
[place] Sump 60 / 60 40 / 40
Output:
Drain Output (Total) 395 / 395 50 / 50
Right [place] 395 / 395 50 / 50
Gastrointestinal tube output ( 500 / 500
Total)
[place] Sump 500 / 500
Urine, Cm 2485 / 2485 230 / 230
Vital Signs
Temp Pulse Resp BP Pulse Ox
97.7 F 88 21 110/84 98
04/05/24 11:18 04/05/24 08:30 04/05/24 08:30 04/05/24 08:00 04/05/24 08:39
Lab Results
04/05/24 03:17
Calcium 7.8 mg/dl (8.4-10.2) L 04/05/24 03:17
Phosphorus Cancelled 04/05/24 06:00
Magnesium Cancelled 04/05/24 06:00
Total Bilirubin 0.3 mg/dl (0.2-1.3) 04/03/24 23:59
AST 172 U/L (14-36) H 04/03/24 23:59
ALT 105 U/L (0-35) H 04/03/24 23:59
Alkaline Phosphatase 51 U/L (38-126) 04/03/24 23:59
Total Protein 6.8 g/dl (6.3-8.2) 04/03/24 23:59
Albumin 3.8 g/dl (3.5-5.0) 04/03/24 23:59
Physical Exam
-
Gen: NAD
HEET: gastric outputs, non-bilious
Abd: soft, mild tenderness, ND, non-peritoneal, midline dressing with some shadowing, AKHIL serosang
--- NOTE | 2024-04-05 15:24 | CM ---
CM following re: discharge planning.
Reviewed pt's chart, met with pt and pt's boyfriend at bedside.
Per [facility] Kameron, pt requested to meet with her tomorrow because she did not feel well to participate in conversation.
[facility] following.
D/C plan: home with [facility] to follow and family support.
CM will follow with discharge plan updates as hospitalization progresses
[2024-04-05 15:38] LABS: Hematocrit 21.8 % (37.0-47.0); Hemoglobin 7.6 g/dL (12.0-16.0); Mean Corp Hgb Conc. 34.9 g/dL (33.0-37.0); Mean Corpuscular Volume 100.5 fL (81.0-99.0); Mean Platelet Volume 10.7 fL (7.4-10.4); Platelet Count 61 10^3/uL (130-400); Red Blood Cell Count 2.17 10^6/uL (4.20-5.40); Red Cell Dist. Width 16.3 % (11.5-14.5); White Blood Cell Count 9.7 10^3/uL (4.8-10.8)
--- NOTE | 2024-04-05 16:12 | PTCARENOTE ---
cbc results notified to dr cunningham will continue to trend
[2024-04-05] MEDS: STERILE WATER FOR INJECTION 20 ML IV (17:07)
[2024-04-05] MEDS: ROCEPHIN 2000 MG IV (17:07)
[2024-04-05 18:13] LABS: Glucose - Point of Care 100 mg/dl (70-99)
[2024-04-05] MEDS: CALCIUM GLUCONATE 100 IV (18:16)
--- NOTE | 2024-04-05 18:23 | PTCARENOTE ---
pt oob walked to bathroom voided.
[2024-04-05 21:01] LABS: Hematocrit 20.9 % (37.0-47.0); Hemoglobin 7.5 g/dL (12.0-16.0); Mean Corp Hgb Conc. 35.9 g/dL (33.0-37.0); Mean Corpuscular Volume 97.7 fL (81.0-99.0); Mean Platelet Volume 10.1 fL (7.4-10.4); Platelet Count 60 10^3/uL (130-400); Red Blood Cell Count 2.14 10^6/uL (4.20-5.40); Red Cell Dist. Width 15.6 % (11.5-14.5); White Blood Cell Count 8.5 10^3/uL (4.8-10.8)
--- NOTE | 2024-04-05 21:16 | PTCARENOTE ---
Received patient AAOx3, following commands, denying pain. Family at bedside. Normal sinus, 70s-80s, BP stable, normothermic. Lung sounds diminished throughout, 94% on room air. Abdomen soft, tender to palpation, positive bowel sounds. Midline
dressing CDI, old drainage. AKHIL drain putting out serosanguineous fluid. Voiding in bathroom. PIV patent, WNL. Call gomez within reach.
[2024-04-05 21:52] LABS: Glucose - Point of Care 106 mg/dl (70-99)
[2024-04-06] VITALS (9 sets, daily range): BP systolic 119–143; BP diastolic 78–94; BMI 25.4
[2024-04-06] MEDS: DILAUDID 0.5 MG IV ×3 (04:07→21:57)
[2024-04-06 05:02] LABS: ALT (SGPT) 677 U/L (0-35); Albumin 2.6 g/dl (3.5-5.0); Alkaline Phosphatase 37 U/L (38-126); Blood Urea Nitrogen 15 mg/dl (7-17); Carbon Dioxide 21 mmol/L (22-30); Chloride 107 mmol/L (98-107); Estimated Creatinine Clearance > 125 ml/min; Glucose 99 mg/dl (70-99); Magnesium 1.6 mg/dl (1.6-2.3); Phosphorus 2.6 mg/dl (2.5-4.5); Sodium 136 mmol/L (135-145); Total Bilirubin 1.2 mg/dl (0.2-1.3); Total Protein 5.2 g/dl (6.3-8.2); eGFR > 60.00
[2024-04-06 05:04] LABS: AST (SGOT) 1284 U/L (14-36)
[2024-04-06 05:34] LABS: Hematocrit 20.6 % (37.0-47.0); Hemoglobin 7.7 g/dL (12.0-16.0); Mean Corp Hgb Conc. 37.4 g/dL (33.0-37.0); Mean Corpuscular Volume 96.3 fL (81.0-99.0); Mean Platelet Volume 10.8 fL (7.4-10.4); Platelet Count 58 10^3/uL (130-400); Red Blood Cell Count 2.14 10^6/uL (4.20-5.40); Red Cell Dist. Width 15.1 % (11.5-14.5); White Blood Cell Count 7.1 10^3/uL (4.8-10.8)
--- NOTE | 2024-04-06 08:06 | W.PN.GS2 ---
Today's Communication / Plan
-
-- Trial of fulls, risks of ileus explained
-- Pain meds as needed, OK for Toradol and DVT prophylaxis
-- Will DC AKHIL later this afternoon
Assessment / Plan
-
Patient is a 38 yo F p/w hemorrhagic shock POD#2 s/p exploratory laparotomy and myomectomy
Recovering well. Extubated and weaned off pressors. Tachycardia has resolved. Blood pressure improved. Hb stable around 7. AKHIL outputs benign. Low concern for continued active blood loss at this time.
-- Trial of fulls, risks of ileus explained
-- Pain meds as needed, OK for Toradol and DVT prophylaxis
-- Will DC AKHIL later this afternoon
-- Trend Hb
-- OK to transfer to floors from surgical perspective
Subjective Data
-
Date of Service: April 06, 2024
Reports mostly RIGHT foot pain, though upon prompting�endorse some abdominal discomfort. Reports mild, brief nausea not requiring medication use. No vomiting. No flatus or BM. Minimal ambulation up to bathroom. Voiding. Afebrile.
Objective Data
-
Intake and Output
04/05/24 04/06/24 04/07/24
06:59 06:59 06:59
Intake Total 2565 / 2690 2315 / 2315
Output Total 3380 / 3380 370 / 370
Balance -815 / -690 1944
Intake:
Oral fluids 400 / 400
IV fluids (Total) 237 / 2500 1874
Nss 1,000 ml @ 125 mls/hr IV . 2374 / 2499
Q8H [facility] Rx#:[id number]
IV piggybacks 130 / 130
Amount instilled into GI Tube ( 60 / 60 40 / 40
Total)
[place] Sump 60 / 60 40 / 40
Output:
Drain Output (Total) 395 / 395 140 / 140
Right [place] 395 / 395 140 / 140
Gastrointestinal tube output ( 500 / 500
Total)
[place] Sump 500 / 500
Urine, Cm 2485 / 2485 230 / 230
Other:
Number of approximated MODERATE 1
amounts of urine
Number of approximated LARGE 1
amounts of urine
How many times incontinent 1
SATURATED amount urine
Vital Signs
Temp Pulse Resp BP Pulse Ox
99.1 F 61 13 130/88 93
04/06/24 03:28 04/06/24 06:00 04/06/24 06:00 04/06/24 04:02 04/06/24 03:00
Lab Results
04/06/24 04:02
04/06/24 04:02
Calcium 8.0 mg/dl (8.4-10.2) L 04/06/24 04:02
Phosphorus 2.6 mg/dl (2.5-4.5) 04/06/24 04:02
Magnesium 1.6 mg/dl (1.6-2.3) 04/06/24 04:02
Total Bilirubin 1.2 mg/dl (0.2-1.3) 04/06/24 04:02
AST 1284 U/L (14-36) H* 04/06/24 04:02
ALT 677 U/L (0-35) H* 04/06/24 04:02
Alkaline Phosphatase 37 U/L (38-126) L 04/06/24 04:02
Total Protein 5.2 g/dl (6.3-8.2) L D 04/06/24 04:02
Albumin 2.6 g/dl (3.5-5.0) L 04/06/24 04:02
Physical Exam
-
Gen: NAD
Abd: soft, mild tenderness, mild distension, tympany, non-peritoneal, midline with some shadowing, AKHIL serosang
[2024-04-06] MEDS: ROXICODONE 5 MG PO ×2 (09:49→18:26)
[2024-04-06] MEDS: FOLVITE 1 MG PO (09:50)
[2024-04-06] MEDS: THIAMINE INJECTION 200 MG IV ×2 (09:50→20:25)
[2024-04-06] MEDS: ZOFRAN 4 MG IV ×2 (10:13→18:49)
[2024-04-06 10:31] LABS: Lipase 77 U/L (23-300)
--- NOTE | 2024-04-06 12:39 | CON.GI ---
Addendum entered and electronically signed by Yony Mcclain MD 04/06/24 14:33:
Patient seen and examined, agree with nurse practitioner note. Patient presents with massive hemoperitoneum of unclear source, status post ex lap and myomectomy, of unclear cause. She was profoundly hypotensive on admission. LFTs on admission
were very minimally elevated the low 100s, though when repeated today for the first time were greater than the thousand. She is overall feeling better, still with some abdominal tenderness. She has no history of liver disease in the past. Her
mother does have hepatitis C and possible exposure in the past though again no history of liver disease. She does drink several whiskeys daily. Ultrasound with steatosis though otherwise unremarkable. On exam she has some mild expected tenderness
though otherwise is unremarkable.
1. Elevated LFTs: In a marked necroinflammatory pattern, the setting of profound hypotension, likely secondary to low flow/shock liver. Her platelets are low though likely from consumption, no other stigmata of cirrhosis. At this point we will
check labs to rule out other underlying liver disease including her hepatitis C status given previous exposure. Will continue to trend for now.
Original Note:
Consultation
-
Date/Time Consultation Requested: 04/06/24 1200
Date/Time Consultation Performed: 04/06/24 1240
Requesting Provider: Viktoria Levi MD
Performing Provider: KIRIT Reed, Luis Mcclain MD
Reason for Consultation: elevated LFT's
Medical History
Chief Complaint / HPI
Chief Complaint: abdominal pain
History of Present Illness:
Pt is a 38yo with hx ETOH(several drinks of Whiskey daily, drinking 1 bottle per week) /tobacco use, prior hep C exposure with no chronic medical issues. She began with sudden onset of abdominal pain with nausea/vomiting and diarrhea on 04/03 in
the PM. She began with mild pain that become severe quickly and on arrival to ER was unresponsive. CT on admission with concern for moderate hemoperitoneum with heterogeneous mass in pelvis with left ovarian vein track to lesion with concern for
torsion with hemorrhage. Ruptured ectopic in differential but HBG was neg. On arrival she was noted with marked hypotension with initial BP 55/32 on arrival requiring pressors with lactate 17.9. She proceeded to OR for exp lap with noted
large amount of hemoperitoneum and clot about 1400ml abdominal myomectomy and fulguration endometriosis. General surgery eval as also given during OR with thorough eval of spleen, liver, without bleeding, SB run from LT and TI normal colon and
blood evidence of active bleeding. Post -op pt was extubated and hbg 7-8 range with improved blood pressure at this time without pressors. Asked to see for rise in LFT's. Initial LFT's 12/2 on arrival with bili 0.3, AST 172, ALT 105, alk phos 51.
Repeat today with bili 1.2, AST 1284, ALT 677 alk phos 37. INR was 1.77 on admission.
In review with patient prior to onset of pain no GI issues with dysphagia, GERD, nausea, vomiting, diarrhea, constipation or rectal bleeding. She did admit to heave menses at times. She currently has post -op mild nausea but tolerating some
clear diet and 9/10 diffuse abdominal pain. She denies hx liver problems in past but does reports hx hep C exposure as on infant from her mother. She did not recall prior treatment and possible clearance. She admit to NSAID use 1-2 times per
week for headaches. No supplement use. Recent travel to [place] for 1 month in January. No hx EGD or colonoscopy in past.
Past Medical History
Past Medical History: Other (hep C exposure as -- did not recall prior treatment ? naturally cleared, daily ETOH use, tobacco use, headaches)
Social History
Tobacco: Smoker
Alcohol: Daily
Drug: Marijuana (occasional THC)
Personal: Other (boyfriend )
Living: Other (boyfriend )
Employment: Employed (works at [employer])
Family History
Family History: Other (mother with hx liver problems and grandmother with pancreatic issues- pt unsure of details )
Allergies / Home Medications
Allergy/AdvReac Type Severity Reaction Status Date / Time
Penicillins Allergy Unknown Verified 04/04/24 04:11
Sulfa (Sulfonamide Allergy 'Itchy, Verified 04/04/24 17:11
Antibiotics) swollen
body'
�Medication �Instructions �Recorded
No Meds [No Current Medications] 04/04/24
Review of Systems
-
History Source: Patient and Other (boyfriend )
Constitutional: Reports Fatigue
EENT: Reports No Symptoms
Respiratory: Reports No Symptoms
Abdomen/GI: Reports Abdominal Pain and Nausea
: Reports Other (heavy menses prior to admission)
Musculoskeletal: Reports No Symptoms
Skin: Reports No Symptoms
Neurological: Reports No Symptoms
Endocrine: Reports No Symptoms
Hematologic/Lymphatic: Reports No Symptoms
Vital Signs
Temp Pulse Resp BP Pulse Ox
97.4 F 75 24 133/78 93
04/06/24 12:28 04/06/24 12:05 04/06/24 12:05 04/06/24 12:05 04/06/24 03:00
Physical Exam
Exam
General: Well Developed, Well Nourished and No Apparent Distress
HEENT: Normocephalic and Anicteric
Respiratory: Clear
Cardiac: Regular Rhythm
GI: Soft, Tender (midline dressing intact, AKHIL with bloody drainage ) and Distended
Musculoskeletal: No Clubbing and No Cyanosis
Skin: Warm and Dry
Neuro: Awake, Alert and AO x 3
Psych: Calm
Results
WBC 7.1 10^3/uL (4.8-10.8) 04/06/24 04:02
Hgb 7.7 g/dL (12.0-16.0) L 04/06/24 04:02
Hct 20.6 % (37.0-47.0) L* 04/06/24 04:02
MCV 96.3 fL (81.0-99.0) 04/06/24 04:02
Plt Count 58 10^3/uL (130-400) L 04/06/24 04:02
Absolute Neuts (auto) 15.3 10^3/uL (1.4-6.5) H 04/04/24 07:41
PT 20.8 Sec (11.4-14.6) H 04/04/24 05:50
INR 1.77 04/04/24 05:50
APTT 43.8 Sec (23.4-35.0) H 04/04/24 05:50
Sodium 136 mmol/L (135-145) 04/06/24 04:02
Potassium 4.0 mmol/L (3.5-5.1) 04/06/24 04:02
Chloride 107 mmol/L (98-107) 04/06/24 04:02
Carbon Dioxide 21 mmol/L (22-30) L 04/06/24 04:02
BUN 15 mg/dl (7-17) 04/06/24 04:02
Creatinine 0.6 mg/dL (0.6-1.0) 04/06/24 04:02
Calcium 8.0 mg/dl (8.4-10.2) L 04/06/24 04:02
Total Bilirubin 1.2 mg/dl (0.2-1.3) 04/06/24 04:02
AST 1284 U/L (14-36) H* 04/06/24 04:02
ALT 677 U/L (0-35) H* 04/06/24 04:02
Alkaline Phosphatase 37 U/L (38-126) L 04/06/24 04:02
Lipase 77 U/L (23-300) 04/06/24 04:02
Diagnostic Image Results:
04/04 US Abdomen Complete/Upper
IMPRESSION: Hepatic fatty infiltration.
Nonvisualization of pancreas.
04/04/24 CR Chest Portable - 1 View
Endotracheal tube with tip in trachea approximately 6 cm above the jermain. No pneumothorax.
Nasogastric tube extending into the stomach, with tip off the image.
04/04/24 US Pelvis W Transvag Combined
1. Complex fluid within the pelvis, compatible with hemorrhage. Hemoperitoneum was also seen on recent prior CT.
2. Pelvic mass which appears to be separate from the uterus and left ovary. The right ovary was not visualized separate from the mass.
3. Overall, findings are concerning for right ovarian torsion.
04/04/24 CT Chest/abd/pel W Iv Cont
1. Moderate hemoperitoneum.
2. Heterogeneous mass within the pelvis, left ovarian vein possibly tracks to the lesion. Findings are concerning for ovarian torsion with hemorrhage. Ruptured ectopic would also be in the differential diagnosis, although the patient's
beta hCG was negative
normal smooth contour liver .
Prior GI Procedures:
EGD:none
Colonoscopy: none
Assessment / Plan
-
Pt is a 38yo with hx ETOH(several drinks of Whiskey daily, drinking 1 bottle per week) /tobacco use, prior hep C exposure with no chronic medical issues. She began with sudden onset of abdominal pain with nausea/vomiting and diarrhea on 04/03 in
the PM. She began with mild pain that become severe quickly and on arrival to ER was unresponsive. CT on admission with concern for moderate hemoperitoneum with heterogeneous mass in pelvis with left ovarian vein track to lesion with concern for
torsion with hemorrhage. Ruptured ectopic in differential but HBG was neg. On arrival she was noted with marked hypotension with initial BP 55/32 on arrival requiring pressors with lactate 17.9. She proceeded to OR for exp lap with noted
large amount of hemoperitoneum and clot about 1400ml abdominal myomectomy and fulguration endometriosis. General surgery eval as also given during OR with thorough eval of spleen, liver, without bleeding, SB run from LT and TI normal colon and
blood evidence of active bleeding. Post -op pt was extubated and hbg 7-8 range with improved blood pressure at this time without pressors. Asked to see for rise in LFT's. Initial LFT's 04/03 on arrival with bili 0.3, AST 172, ALT 105, alk phos 51.
Repeat 04/06 with bili 1.2, AST 1284, ALT 677 alk phos 37. INR was 1.77 on admission.
-marked rise in LFT's after admission
-hemoperitoneum/elevated lactate on admission s/p exp lap/myomectomy- unclear bleeding source per ACTUARY CLERK
-hypotension on admission requiring pressors
-s/p intubation
-anemia acute blood loss
-thrombocytopenia
-coagulopathy on admission
-hx hep C exposure
-ETOH abuse
-fatty liver on US
-hx heavy menses prior to admission
PLAN:
etiology of elevated LFT's related to shock liver with marked hypotension vs other
trend labs
await hep serology -- pt with prior exposure hep C Ab will likely be +, await RNA for any sign of active infection
US as noted with fatty liver, CT with smooth contour
diet, pain control and post-op care per surgery
counseled pt on cutting back on ETOH use
await repeat INR and trend platelets with continued thrombocytopenia(noted platelets, albumin normal on admission less likely underlying baseline liver issue)
updated significant other at bedside
pt will try to obtain hep C hx from mother
-
-
Thank you for consultation and allowing me to participate in the patient's care. Please call the commercial correspondent GI physician during the after hours with any questions or concerns.
--- NOTE | 2024-04-06 12:41 | W.PN.HOSP.TC ---
Addendum entered and electronically signed by Malick Nails MD 04/06/24 13:28:
Hemorrhagic shock - resolved
Hemoperitoneum s/p ex lap pod 2 with myomectomy
-s/p 2u prbc
-hgb stable now, transfuse hgb<7
-preboarder and surgery following
-AKHIL drains remain in place
Transaminits
-Intially suspected as it was a modest elevation that it was related to fatty liver.
-But todays LFT's are in the 1000's, therefore, cannot exclude shock liver (ischemic hep) as etiology satish as she was in hemorrhagic shock requiring pressors
-Will check acute hep panel for completeness
-Will have GI eval
-Can check a CK
-Hold hepatoxins at this time/
Alcohol use disorder
-drinks 6alcohol beverages daily, (combincation of beer, liquor and clayton beer cocktail.
-Msas
-thiamine
-folate
Metabolic acidosis
-resolved
Original Note:
Today's Communication/Plan
-
- follow GI
- Follow precipitator
Assessment / Plan
Assessment / Plan
hepatic ischemia
Elevated LFTs:
- Sudden increase in LFTs AST is 1284, ALT is 677, and recent hypovolemic shock following surgery
- obtain repeat PT and APTT, today PT is 20.8 and APTT is 43.8
- repeat LFTS
- Ordered acute hepatitis panels
- Previous u/s showed fatty infiltration of the liver
- Consulted gastroenterology
UTI due to e ecoli infection:
- E coli is seen on cultures
- Continue on Rocephin, and Pyridium added for dysuria
Possible ovarian torsion/rupture with hemoperitoneum
Acute hypovolemic shock
Acute blood loss:
-Patient had exploratory laparotomy for hemoperitoneum, she is post op day 2, currently on room air
platelet count 50 trending down, indicating an active bleed, fibrinogen level not taken today
- blood pressure 133/78 and well-controlled,
- follow H&H and transfuse if hgb is less than 7,
- MAP more than 65
-Pain control with dialudid and acetaminophen 650 as needed, oxycodone also added in as part of pain control regime
- IVf as needed
- Gyneac following
- Administration Dean following
Primary metabolic acidosis:
- VBG indicates a primary metabolic acidosis
Hypertriglyceridemia:
-Levels 192, most likely due to alcohol abuse, continue to follow
Macrocytic anemia:
-MCV is 102 and most recent hemoglobin is 8.2, hematocrit 22.2
-Most likely due to alcohol use
Alcohol use disorder:
- Her MSAS score is 0
-Continue MSAS protocol with folate, thiamine, Ativan
Marijuana abuse:
- urine drug screen positive
- Force Dispatcher patient on cessation
Leukocytosis:
-Today's WBC count of 7.1 , resolved
-
Anticipated Discharge: 24 - 48 hours
Subjective/Interval History
-
Date of Service: April 06, 2024
She feels pain near her suprapubic area. says that she has to urinate frequently and that she pain when she urinates.
Objective Data
-
Labs:
Laboratory Results
04/06/24 04/06/24
04:02 11:55
WBC 7.1
Hgb 7.7 L
Hct 20.6 L*
Plt Count 58 L
PT Pending
INR Pending
APTT Pending
Sodium 136
Potassium 4.0
Chloride 107
Carbon Dioxide 21 L
BUN 15
Creatinine 0.6
Glucose 99
Calcium 8.0 L
Total Bilirubin 1.2
AST 1284 H*
ALT 677 H*
Alkaline Phosphatase 37 L
Vital Signs:
Vital Signs
Temp Pulse Resp BP Pulse Ox
97.4 F 75 24 133/78 93
04/06/24 12:28 04/06/24 12:05 04/06/24 12:05 04/06/24 12:05 04/06/24 03:00
I&O
04/05/24 04/06/24 04/07/24
06:59 06:59 06:59
Intake Total 2565 / 2690 2315 / 2315
Output Total 3380 / 3380 370 / 370
Balance -815 / -690 194 / 1944
Review of Systems
-
History Source: Patient
Constitutional: Denies Fever or Chills
EENT: Reports Other (Throat pain )
Respiratory: Denies Cough or Trouble Breathing
Cardiac: Denies Chest Pain, Diaphoresis, Palpitations, Syncope or PND
Abdomen/GI: Reports Abdominal Pain (suprapubic area); Denies Nausea, Vomiting, Diarrhea or Constipated
Genitourinary: Reports Dysuria, Urgency and UTI
Physical Exam
-
Respiratory: Clear to Auscultation
Cardiac: Regular Rhythm and S1/S2
GI: Soft, Nondistended, Normal Bowel Sounds and Tender (suprapubic area)
Genito-urinary: Clear Urine; Negative No Costovertebral Tender
Musculoskeletal: No Clubbing, No Cyanosis and No Edema
Neuro: Awake, Alert, Oriented and AO x 3
Data Reviewed
-
Medical Tests (Nuc Med, Echo etc): Image personally visualized and interpreted and Discussed with Physician
Labs: Labs Reviewed by me and Discussed with Physician
--- NOTE | 2024-04-06 13:08 | PTCARENOTE ---
transfer to room 2128 telemetry level of care. pt transfer via w/c
AAO x3
SR VSS NO edema
Lungs clear RA
Abdomen tender shea 5/10 pain scale level Oxycodone given this am prn order. pt has order for Dilaudid will be given 2S
Abdominal incision covered by accusal old drainage observed no new drainage noted
pt voided bloody tinge urine. pt states that she have hematuria prior
tolerating clear liquid diet without N/V
All belogings packed by pt boyfriend and transfer with patient
[2024-04-06 13:52] LABS: INR 0.91; PT 12.8 Sec (11.4-14.6)
[2024-04-06 13:53] LABS: APTT 24.5 Sec (23.4-35.0)
--- NOTE | 2024-04-06 14:26 | PN.CDI ---
CDI
- -
CDI:
Physician Documentation Request
Admit Date: 04/04/24 05:36
Dear Doctor Viktoria,
Patient presented to ED with shock and hemoperitoneum. GI consult states 'etiology of elevated LFT's related to shock liver with marked hypotension vs other'
Creatinine resulted as follows:
Laboratory Tests
04/03/24 04/04/24 04/04/24
23:59 00:54 05:50
Creatinine 1.5 H 1.3 H 1.1 H
04/04/24 04/05/24 04/06/24
12:05 03:17 04:02
Creatinine 0.8 0.9 0.6
Please clarify which of the following accurately represents the patient's renal status:
____ - JOSE
____ - JOSE with suspected ATN
____ - abnormal lab value clinically insignificant
____ - Other
Criteria for JOSE*
1 Increase in serum creatinine by > or = to 0.3 mg/dL (> or = to 26.5 micromol/L) within 48 hours, OR
2 Increase in serum creatinine to > or = to 1.5 times baseline, which is known or presumed to have occurred within 7 days, OR
3 Urine volume < 0.5 nL/kg/hour for six hours
Use of terms such as suspected, likely, concern for, or probable (associated with a specific diagnosis that is being evaluated, monitored, or treated as if it exists) are acceptable and can be coded in the inpatient setting, when documented at the
time of discharge.
Thank you,
Sarah Retana RN, BSN
CDI Specialist
tiger text
Please use your independent medical judgment in providing your response.
*Source: Kidney Disease: Improving Global Outcomes (KDIGO) 2012
--- NOTE | 2024-04-06 14:32 | PN.CDI ---
CDI
- -
CDI:
Physician Documentation Request
Admit Date: 04/04/24 05:36
Dear Doctor Viktoria,
Patient presented to the ED unresponsive. ED note states 'Patient is not protecting airway and has some vomit in the posterior pharynx. Patient was intubated immediately....' Exam showed 'Significant episodes of apnea.'
ED record list 'respiratory failure....' as discharge problem
ABG 04/04
Laboratory Tests
04/04/24
01:55
pH 6.93 L*
pCO2 36 H
pO2 334 H
HCO3 7.6 L*
Base Excess -23.2
Please clarify the type and acuity of respiratory failure:
Type Acuity
Respiratory failure with hypoxia Acute
Respiratory failure with hypercapnia Other
Respiratory failure with hypoxia and hypercapnia
Other, please specify
Use of terms such as suspected, likely, concern for, or probable (associated with a specific diagnosis that is being evaluated, monitored, or treated as if it exists) are acceptable and can be coded in the inpatient setting, when documented at the
time of discharge.
Thank you,
Sarah Retana RN, BSN
CDI Specialist
tiger text
Please use your independent medical judgment in providing your response.
--- NOTE | 2024-04-06 14:38 | PN.CDI ---
CDI
- -
CDI:
Physician Documentation Request
Admit Date: 04/04/24 05:36
Dear Doctor Viktoria,
Patient presented with large hemoperitoneum.
H&P contains a diagnosis of hypovolemic shock secondary to acute blood loss anemia
Scenic Artist consult states Hemorrhagic shock with severe lactic acidosis due to hemoperitoneum
04/06 hospitalist progress note contains hemorrhagic shock and further down in same note 'Acute hypovolemic shock'
Patient received 2 units of PRBC on 04/04
In an attempt to clarify potentially conflicting documentation, please clarify the type of shock:
Hypovolemic shock
Hemorrhagic shock
Other
Use of terms such as suspected, likely, concern for, or probable (associated with a specific diagnosis that is being evaluated, monitored, or treated as if it exists) are acceptable and can be coded in the inpatient setting, when documented at the
time of discharge.
Thank you,
Sarah Retana RN, BSN
CDI Specialist
tiger text
Please use your independent medical judgment in providing your response.
--- NOTE | 2024-04-06 15:28 | W.PN.OBG.DWH ---
Today's Communication / Plan
-
Pain control as needed.
OOB encouraged
incentive spirometer use
Assessment/Plan
-
38yo POD#2 s/p Exp Lap, Abd myomectomy
1. Hemoperitoneum-unclear source.
2. Anemia-hgb stable between 7-8. She remains hemodynamically stable. no concern for active bleeding
3. Elevated Transaminases: Significant increase today likely related to hypovolemia related to blood loss pre-op. continue to monitor.
4. UTI- patient on Abx for a UTI. reassured her blood in urine may be related to this, vs irritation from having the catheter in place.
5. Pain control as needed.
6/ OOB encouraged
7. Advance diet per Gen Surg
8. Encouraged I.S use
Subjective Data
-
feels okay, happy that she can advance her diet to full liquids. Feels like she has restless legs but the SCDs seem to help. No n/v/f/c. Cm recently removed and she says she noticed some blood in the urine. She is having some incisional pain.
Objective Data
-
Laboratory Results
04/06/24 04:02
04/06/24 04:02
Vital Signs
Temp Pulse Resp BP Pulse Ox
97.4 F 75 24 133/78 93
04/06/24 12:28 04/06/24 12:05 04/06/24 12:05 04/06/24 12:05 04/06/24 03:00
AST 1284
ALT 671
Cr: 0.6
AKHIL drain with a small amount of serosanguinous fluid maybe 10cc (total 50cc documented for the day so far)
Gen: nad well appearing
Abd: soft, nt, nd
Incision: bandage in place, shadowing noted, not extending beyond previously demarcated border.
Ext: no LE ttp
--- NOTE | 2024-04-06 16:10 | PTCARENOTE ---
pt transferred to this afternoon around 1330. pt aaox3, verbalizing some abd pain and was asking for pain medications prior to transfer but nurse upstairs was not able to give due to it not being within appropriate administration time. once
patient was settled within the room, prn dilaudid was given through her R AC. pt states the SCD cuff has been helping with her restless legs but did not want them on at that time. pt still with R sided AKHIL drain with serosanguineous drainage. pt and
her partner were oriented to the room and call light system
[2024-04-06 16:49] LABS: Glucose - Point of Care 99 mg/dl (70-99)
--- NOTE | 2024-04-06 16:56 | W.PN.UPDATE ---
Update Note
Progress Note Update
Hemorrhagic shock
Acute blood loss:
-Patient had exploratory laparotomy for hemoperitoneum, she is post op day 2, currently on room air
platelet count 50 trending down, indicating an active bleed, fibrinogen level not taken today
- blood pressure 133/78 and well-controlled,
- follow H&H and transfuse if hgb is less than 7,
- MAP more than 65
-Pain control with dialudid and acetaminophen 650 as needed, oxycodone also added in as part of pain control regime
- IVf as needed
- Gyneac following
- Head Of Conservation following
Respiratory failure with hypercapnia:
- Patient is intubated on admission
- VBG shows pco2 is 68, po2 59,
Acute kidney injury:
- creatinine is 1.3 on 04/04/24, trending down and resolved on 04/06/24
[2024-04-06] MEDS: ROCEPHIN 2000 MG IV (18:44)
[2024-04-06] MEDS: STERILE WATER FOR INJECTION 20 ML IV (18:44)
[2024-04-06 19:39] LABS: Hepatitis B Surface Antigen Negative (Negative)
--- NOTE | 2024-04-06 19:45 | PTCARENOTE ---
pt given prn zofran for c/o nausea this evening. pt also given emesis bag and educated to call nurse if beginning to vomit. at 1900 pt rang and had about 50ml of emesis output. abdominal incisions intact. AKHIL drain had a total of 50ml out
serosanguineous output for this nurse. pt with restless legs but stated SCD sleeves helped relieve some discomfort.
[2024-04-06 19:56] LABS: Hepatitis B Core Ab, Total Negative (Negative); Hepatitis B Surface Antibody Positive; Hepatitis C Antibody Reactive (Negative)
[2024-04-06 20:11] LABS: Hepatitis A Antibody, Total Negative (Negative)
[2024-04-07] VITALS (7 sets, daily range): BP systolic 116–126; BP diastolic 65–79; BMI 24.7
[2024-04-07] MEDS: DILAUDID 0.5 MG IV (03:41)
[2024-04-07 06:35] LABS: INR 0.93; PT 12.9 Sec (11.4-14.6)
[2024-04-07 07:04] LABS: ALT (SGPT) 456 U/L (0-35); AST (SGOT) 550 U/L (14-36); Albumin 2.9 g/dl (3.5-5.0); Alkaline Phosphatase 51 U/L (38-126); Blood Urea Nitrogen 13 mg/dl (7-17); Calcium 7.9 mg/dl (8.4-10.2); Carbon Dioxide 23 mmol/L (22-30); Chloride 100 mmol/L (98-107); Estimated Creatinine Clearance 118 ml/min; Glucose 93 mg/dl (70-99); Potassium 3.3 mmol/L (3.5-5.1); Sodium 134 mmol/L (135-145); Total Bilirubin 0.8 mg/dl (0.2-1.3); Total Protein 5.7 g/dl (6.3-8.2); eGFR > 60.00
[2024-04-07 07:05] LABS: ALT (SGPT) 465 U/L (0-35); AST (SGOT) 535 U/L (14-36); Alkaline Phosphatase 58 U/L (38-126); Iron 78 ug/dl (37-170)
[2024-04-07 07:08] LABS: Percent Saturation 29 % (20-50); Total Iron Binding Capacity 265 ug/dl (265-497)
[2024-04-07 07:09] LABS: Hematocrit 23.5 % (37.0-47.0); Hemoglobin 8.2 g/dL (12.0-16.0); Mean Corp Hgb Conc. 34.9 g/dL (33.0-37.0); Mean Corpuscular Hgb 35.7 pg (27.0-31.0); Mean Corpuscular Volume 102.2 fL (81.0-99.0); Mean Platelet Volume 10.7 fL (7.4-10.4); Platelet Count 87 10^3/uL (130-400); Red Cell Dist. Width 14.6 % (11.5-14.5); White Blood Cell Count 6.3 10^3/uL (4.8-10.8)
[2024-04-07] MEDS: FOLVITE 1 MG PO (08:33)
[2024-04-07] MEDS: VITAMIN B1 100 MG PO ×2 (08:33→20:57)
--- NOTE | 2024-04-07 09:01 | PN.CDI ---
CDI
- -
CDI:
Physician Documentation Request
Admit Date: 04/04/24 05:36
Dear Doctor Viktoria,
Hospitalist progress note states 'Possible ovarian torsion/rupture with hemoperitoneum'
PAZ/DYE BLENDER OR report states 'There was no evidence of any bleeding coming from the uterus, the fibroid, bilateral tubes, or ovaries......At the time
of noting that the bleeding was not coming from the gynecologic structures,.....'
Please clarify the following:
____ - ovarian torsion/rupture was present
____ - ovarian torsion/rupture was ruled out
____ - ovarian torsion/rupture is still a likely, suspected, probable diagnosis
____ - Other
Use of terms such as suspected, likely, concern for, or probable (associated with a specific diagnosis that is being evaluated, monitored, or treated as if it exists) are acceptable and can be coded in the inpatient setting, when documented at the
time of discharge.
Thank you,
Sarah Retana RN, BSN
CDI Specialist
tiger text
Please use your independent medical judgment in providing your response.
--- NOTE | 2024-04-07 10:09 | W.PN.GS2 ---
Addendum entered and electronically signed by Luis Hernández MD 04/07/24 11:46:
I saw and examined the patient.
The Operation Research Analyst's note was reviewed and I agree with the note.
Comment: Hb stable. C/o n/v/distention; distended on exam, AKHIL ss, likely developing ileus (expected after hemoperitoneum). Will make NPO, willl place NGT if further emesis.
Original Note:
Today's Communication / Plan
-
NPO/IVF
Assessment / Plan
-
Patient is a 38 yo F p/w hemorrhagic shock POD#3 s/p exploratory laparotomy and myomectomy
AFVSS
Hb stable at 8.2. AKHIL outputs benign. Low concern for continued active blood loss at this time.
N/V yesterday evening after diet advanced to fulls; Ileus present.
-- NPO with sips of clears until robf
-- May need NGT if vomiting recurs/persists
-- IVF until tolerating diet
-- Pain meds as needed, OK for Toradol and DVT prophylaxis
-- Will DC AKHIL later this afternoon
-- Encouraged activity/oob and ambulate
Subjective Data
-
Date of Service: April 07, 2024
Patient seen and examined at bedside with Dr. Hernández. Nausea and vomiting overnight. Intermittent nausea today. Passing some flatus.
Objective Data
-
Intake and Output
04/06/24 04/07/24 04/08/24
06:59 06:59 06:59
Intake Total 2315 / 2315 720 / 720
Output Total 370 / 370 175 / 175
Balance 1944 / 1944 545 / 545
Intake:
Oral fluids 400 / 400 720 / 720
IV fluids (Total) 1874
Nss 1,000 ml @ 125 mls/hr IV . 1874
Q8H [facility] Rx#:[id number]
Amount instilled into GI Tube ( 40 / 40
Total)
[place] Sump 40 / 40
Output:
Drain Output (Total) 140 / 140 175 / 175
Right Luisito-Billings 140 / 140 175 / 175
Urine, Cm 230 / 230
Other:
Number of approximated MODERATE 1 2
amounts of urine
Number of approximated LARGE 1 1
amounts of urine
How many times incontinent 1
SATURATED amount urine
Vital Signs
Temp Pulse Resp BP Pulse Ox
98.4 F 71 18 116/73 100
04/07/24 07:22 04/07/24 07:22 04/07/24 07:22 04/07/24 07:22 04/07/24 07:22
Lab Results
04/07/24 05:49
04/07/24 05:49
Calcium 7.9 mg/dl (8.4-10.2) L 04/07/24 05:49
Phosphorus 2.6 mg/dl (2.5-4.5) 04/06/24 04:02
Magnesium 1.6 mg/dl (1.6-2.3) 04/06/24 04:02
Total Bilirubin 0.8 mg/dl (0.2-1.3) 04/07/24 05:49
AST 535 U/L (14-36) H* 04/07/24 05:49
AST 550 U/L (14-36) H* 04/07/24 05:49
ALT 456 U/L (0-35) H 04/07/24 05:49
ALT 465 U/L (0-35) H 04/07/24 05:49
Alkaline Phosphatase 51 U/L (38-126) 04/07/24 05:49
Alkaline Phosphatase 58 U/L (38-126) 04/07/24 05:49
Total Protein 5.7 g/dl (6.3-8.2) L 04/07/24 05:49
Albumin 2.9 g/dl (3.5-5.0) L 04/07/24 05:49
Physical Exam
-
Gen: NAD
Abd: soft, mild to mod tenderness, mild distension, non-peritoneal, midline with some shadowing, AKHIL serosang
[2024-04-07] MEDS: KCL 1020 MEQ IV ×2 (10:13→20:57)
--- NOTE | 2024-04-07 11:59 | W.PN.HOSP.TC ---
Addendum entered and electronically signed by Malick Nails MD 04/07/24 13:22:
Hemorrhagic shock - resolved
Hemoperitoneum s/p ex lap pod 2 with myomectomy
-s/p 2u prbc
-hgb stable now, transfuse hgb<7
-lens finisher and surgery following
-AKHIL drains remain in place
?Ileus - per surgery expect post hemoperitonium
-Distention and nausea
-May need NGT
-Would check an Abd xray
-Currently NPO made by surgery
Transaminits
-Intially suspected as it was a modest elevation that it was related to fatty liver.
-But todays LFT's are in the 1000's, therefore, cannot exclude shock liver (ischemic hep) as etiology satish as she was in hemorrhagic shock requiring pressors
-Will check acute hep panel for completeness
-Will have GI eval
-Can check a CK
-Hold hepatoxins at this time/
Alcohol use disorder
-drinks 6alcohol beverages daily, (combincation of beer, liquor and clayton beer cocktail.
-Msas
-thiamine
-folate
Metabolic acidosis
-resolved
Original Note:
Today's Communication/Plan
-
- Follow up with GI, gyneacology, and surgery
- Trend CBC, platelets, LFTS, CMP
Assessment / Plan
Assessment / Plan
hepatic ischemia
Elevated LFTs:
- LFTs trending down AST is 535, ALT is 465
- repeat coagulations tests today PT is 12.9 and APTT is 24.5, normalized
- repeat LFTS, INR, platelets as per GI
- Hepatitis panels show no acute infection with Hep A or B, Hep C pending
- GI on board
- Advised patient on alcohol cessation
Adynamic Ileus:
- Pt has not had a bowel movement since 2 days
- Is placed on NPO and NG tube if any vomiting
- Bowel rest
Hypokalemia:
- K is 3.3
- Potassium is repleted
Hyperferritinemia:
- Elevated
- Could indicate increased alcohol intake vs chronic inflammation vs liver disease
- Follow up with GI
UTI due to e ecoli infection:
- E coli is seen on cultures
- Continue on Rocephin
Possible ovarian torsion/rupture with hemoperitoneum
Acute hypovolemic shock s/p surgery
Acute blood loss:
-Patient had exploratory laparotomy for hemoperitoneum, she is post op day 3,
- blood pressure 124/78 and well-controlled,
- follow H&H and transfuse if hgb is less than 7,
- MAP more than 65
-Pain control with dialudid and acetaminophen 650 as needed, oxycodone also added as needed in as part of pain control regime
- IVf as needed
- Gyneac following
- Accounts Receivable Associate following
Primary metabolic acidosis:
- VBG indicates a primary metabolic acidosis
Hypertriglyceridemia:
-Levels 192, most likely due to alcohol abuse, continue to follow
Macrocytic anemia:
-MCV is 102 and most recent hemoglobin is 8.2, hematocrit 22.2
-Most likely due to alcohol use
Alcohol use disorder:
- Her MSAS score is 1
-Continue MSAS protocol with folate, thiamine, Ativan
Marijuana abuse:
- urine drug screen positive
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
Leukocytosis:
-Today's WBC count of 6.3 , resolved
-
Anticipated Discharge: 24 - 48 hours
Subjective/Interval History
-
Date of Service: April 07, 2024
Pt has not had a bowel movement for the past 2 days.
Objective Data
-
Labs:
Laboratory Results
04/07/24 04/07/24 04/07/24
05:49 05:49 05:49
WBC 6.3
Hgb 8.2 L
Hct 23.5 L
Plt Count 87 L D
PT 12.9
INR 0.93
Sodium 134 L
Potassium 3.3 L
Chloride 100
Carbon Dioxide 23
BUN 13
Creatinine 0.7
Glucose 93
Calcium 7.9 L
Total Bilirubin 0.8
AST 550 H* 535 H*
ALT 456 H 465 H
Alkaline Phosphatase 51
04/07/24
05:49
WBC
Hgb
Hct
Plt Count
PT
INR
Sodium
Potassium
Chloride
Carbon Dioxide
BUN
Creatinine
Glucose
Calcium
Total Bilirubin
AST
ALT
Alkaline Phosphatase 58
Vital Signs:
Vital Signs
Temp Pulse Resp BP Pulse Ox
99.2 F 78 18 124/78 97
04/07/24 11:20 04/07/24 11:20 04/07/24 11:20 04/07/24 11:20 04/07/24 11:20
I&O
04/06/24 04/07/24 04/08/24
06:59 06:59 06:59
Intake Total 2315 / 2315 720 / 720
Output Total 370 / 370 175 / 175
Balance 1945 / 1945 545 / 545
Review of Systems
-
History Source: Patient
Constitutional: Denies Fever or Chills
EENT: Reports Other (Throat pain )
Respiratory: Denies Cough or Trouble Breathing
Cardiac: Denies Chest Pain, Diaphoresis, Palpitations, Syncope or PND
Abdomen/GI: Reports Abdominal Pain (suprapubic area) and Constipated; Denies Nausea, Vomiting or Diarrhea
Genitourinary: Reports Urgency and UTI; Denies Dysuria
Physical Exam
-
Respiratory: Clear to Auscultation
Cardiac: Regular Rhythm and S1/S2
GI: Soft, Nondistended and Tender (suprapubic area)
Genito-urinary: Clear Urine; Negative No Costovertebral Tender
Musculoskeletal: No Clubbing, No Cyanosis and No Edema
Neuro: Awake, Alert, Oriented and AO x 3
Data Reviewed
-
Medical Tests (Nuc Med, Echo etc): Image personally visualized and interpreted and Discussed with Physician
Labs: Labs Reviewed by me and Discussed with Physician
[2024-04-07 12:59] LABS: INR 0.92; PT 12.7 Sec (11.4-14.6)
[2024-04-07] MEDS: KCL 270 MEQ IV (13:00)
[2024-04-07] MEDS: ROXICODONE 5 MG PO (13:15)
--- NOTE | 2024-04-07 13:22 | W.PN.OBG.DWH ---
Today's Communication / Plan
-
Diet advancement as per gen surg
OOB
Pain mgmt
Reviewed op findings. Explained endometriosis
Assessment/Plan
-
1. POD#3 s/p exploratory laparotomy with myomectomy
-AKHIL drain just pulled as I came into room.
2. hypovolemic/hemorrhagic shock from acute blood loss- source not able to be determined.
-no signs of ongoing bleeding. hgb 8.2
3. Transaminitis-LFTs decreased today. ? related to hemorrhagic shock vs impact of alcohol or more likely combination of these.
-regular alcohol intake >5 drinks daily. Strongly encouraged to seek help with quitting.
- Soc service/case mgmt would have information for her if she needed. States someone has already been by to discuss with her.
- Expressed concern for her health and longevity if continued to drink. Advised she should seek help with quitting for good.
4. Erythema right thigh- unclear etiology. Denies any unusual direct contact. Marked perimeter with pen and notified nurse. Will let hospitalist know.
5. UTI- currently on Rocephin-continue for now.
Discussed operative findings again with Alice and boyfriend. Questions answered.
Diet to be advanced per Gen surgery
OOB
Subjective Data
-
POD#3
Feels gas 'moving around' but no flatus yet.
Taking sips clears
Reports her knees feel chapped.
No CP, SOB
Did not remember much of prior conversations from admission, postop visits. Vaguely remembers endometriosis discussion.
Objective Data
-
Laboratory Results
04/07/24 05:49
04/07/24 05:49
Vital Signs
Temp Pulse Resp BP Pulse Ox
99.2 F 78 18 124/78 97
04/07/24 11:20 04/07/24 11:20 04/07/24 11:20 04/07/24 11:20 04/07/24 11:20
Gen: appears comfortable, converses easily
VSS afeb
ABd: soft, ND mild tenderness generally. dressing with some staining on bandage but not extending beyond prior marking.
Ext: no calf pain Right upper leg with well demarcated area erythema just above right Knee. Feels warm to touch. Nontender.Calves NT
--- NOTE | 2024-04-07 14:44 | CM ---
Patient seen at bedside with boyfriend.
Spoke with Kameron from [facility] who states he saw the patient today.
Kameron stated that patient stated 'she does not have a drinking problem' & declined further resources from [facility].
PLAN: home, declined resources from [facility]
--- NOTE | 2024-04-07 15:47 | W.PN.GI.CBS2 ---
Today's Communication / Plan
-
trend LFTS
await HCV viral load
Assessment / Plan
-
Pt is a 38yo with hx ETOH(several drinks of Whiskey daily, drinking 1 bottle per week) /tobacco use, prior hep C exposure with no chronic medical issues. She began with sudden onset of abdominal pain with nausea/vomiting and diarrhea on 04/03 in
the PM. She began with mild pain that become severe quickly and on arrival to ER was unresponsive. CT on admission with concern for moderate hemoperitoneum with heterogeneous mass in pelvis with left ovarian vein track to lesion with concern for
torsion with hemorrhage. Ruptured ectopic in differential but HBG was neg. On arrival she was noted with marked hypotension with initial BP 55/32 on arrival requiring pressors with lactate 17.9. She proceeded to OR for exp lap with noted
large amount of hemoperitoneum and clot about 1400ml abdominal myomectomy and fulguration endometriosis. General surgery eval as also given during OR with thorough eval of spleen, liver, without bleeding, SB run from LT and TI normal colon and
blood evidence of active bleeding. Post -op pt was extubated and hbg 7-8 range with improved blood pressure at this time without pressors. Asked to see for rise in LFT's. Initial LFT's 04/03 on arrival with bili 0.3, AST 172, ALT 105, alk phos 51.
Repeat 04/06 with bili 1.2, AST 1284, ALT 677 alk phos 37. INR was 1.77 on admission.
-marked rise in LFT's after admission
-hemoperitoneum/elevated lactate on admission s/p exp lap/myomectomy- unclear bleeding source per SURFBOARD MAKER
-hypotension on admission requiring pressors
-s/p intubation
-anemia acute blood loss
-thrombocytopenia
-coagulopathy on admission
-hx hep C exposure
-ETOH abuse
-fatty liver on US
-hx heavy menses prior to admission
PLAN:
etiology of elevated LFT's related to shock liver with marked hypotension and also underlying fatty liver from possible EtOH and also her viral serologies are positive for hepatitis C
Await hepatitis C viral load
HBV s AB is positive most likely from prior vaccination her core total antibody is negative and HBV surface antigen is negative
trend labs
Low platelets most likely related to massive hemoperitoneum and consumption doubt underlying cirrhosis, INR normal
Postop management per SURFBOARD MAKER and surgery currently n.p.o. for possible ileus
If has nausea vomiting may require NG tube
counseled pt on cutting back on ETOH use
Subjective
Subjective
Date of Service: April 07, 2024
Noted input from general surgery and SURFBOARD MAKER her AKHIL drain was removed today and she was made n.p.o. since she was unable to tolerate full liquids last night from ileus
Her LFTs are trending down, her abdominal pain is improving, her hemoglobin stable posttransfusion 2 units of packed red blood cells so far
Objective
Data Reviewed
Laboratory Data:
Laboratory Results
04/07/24 05:49
04/07/24 05:49
Laboratory Results
PT 12.7 Sec (11.4-14.6) 04/07/24 12:34
INR 0.92 04/07/24 12:34
APTT 24.5 Sec (23.4-35.0) 04/06/24 13:18
Phosphorus 2.6 mg/dl (2.5-4.5) 04/06/24 04:02
Magnesium 1.6 mg/dl (1.6-2.3) 04/06/24 04:02
Total Bilirubin 0.8 mg/dl (0.2-1.3) 04/07/24 05:49
AST 535 U/L (14-36) H* 04/07/24 05:49
AST 550 U/L (14-36) H* 04/07/24 05:49
ALT 456 U/L (0-35) H 04/07/24 05:49
ALT 465 U/L (0-35) H 12/06/24 05:49
Alkaline Phosphatase 51 U/L (38-126) 04/07/24 05:49
Alkaline Phosphatase 58 U/L (38-126) 04/07/24 05:49
Lipase 77 U/L (23-300) 04/06/24 04:02
Vital Signs and I&O:
Vital Signs
Temp Pulse Resp BP Pulse Ox
98.5 F 74 18 124/65 99
04/07/24 15:32 04/07/24 15:32 04/07/24 15:32 04/07/24 15:32 04/07/24 15:32
I&O
04/06/24 04/07/24 04/08/24
06:59 06:59 06:59
Intake Total 2315 / 2315 720 / 720
Output Total 370 / 370 175 / 175
Balance 1945 / 1945 545 / 545
Physical Exam
Physical Exam
Cardiology: Normal Sinus Rhythm
Pulmonary: Clear
GI: Soft, Distended (Mildly distended) and Tender (Mild tenderness diffusely, hypoactive bowel sounds)
--- NOTE | 2024-04-07 16:14 | W.PN.UPDATE ---
Update Note
Progress Note Update
CDI:
Acute hypovolemic shock s/p surgery
Acute blood loss:
ovarian torsion/rupture was ruled out:
-Patient had exploratory laparotomy for hemoperitoneum, she is post op day 3,
- blood pressure 124/78 and well-controlled,
- follow H&H and transfuse if hgb is less than 7,
- MAP more than 65
-Pain control with dialudid and acetaminophen 650 as needed, oxycodone also added as needed in as part of pain control regime
- IVf as needed
- Gyneac following
- Starcher And Tenter Range Feeder following
ovarian torsion/rupture was ruled out:
[2024-04-07] MEDS: ROCEPHIN 2000 MG IV (17:06)
[2024-04-07] MEDS: FLUSH (NSS) 1 FLUSH IV ×2 (17:06)
[2024-04-07] MEDS: STERILE WATER FOR INJECTION 20 ML IV (17:07)
--- NOTE | 2024-04-07 21:06 | PTCARENOTE ---
Patient c/o reddened burning slightly itchy reddened areas on b/l lower legs. Advised covering provider who came to the bedside and assessed the patient. Orders received.
[2024-04-07] MEDS: BENADRYL 25 MG PO (21:21)
--- NOTE | 2024-04-07 22:49 | PTCARENOTE ---
Patients lower extremities feel better, less reddened and less warm. Advised covering provider.
[2024-04-08 03:10] VITALS: BP 122/74
--- NOTE | 2024-04-08 04:16 | W.PN.UPDATE ---
Update Note
Progress Note Update
Patient have new onset of fever. Will add Lactic acid, Blood cultures and urinalysis to the labs.
[2024-04-08] MEDS: TYLENOL 650 MG PO (04:29)
[2024-04-08 06:00] VITALS: BMI 24.2
[2024-04-08 06:04] LABS: % Basophils 0.2 % (0-2); % Eosinophils 0.4 % (0-6); % Immature Granulocytes 1.9 % (0-0.5); % Lymphocytes 14.9 % (20.5-51.1); % Neutrophils 70.6 % (42.2-75.2); Absolute Immature Granulocytes 0.1 10^3/uL (0-0.05); Absolute Lymphocytes 0.7 10^3/uL (1.2-3.4); Absolute Monocytes 0.6 10^3/uL (0.1-0.6); Absolute Neutrophils 3.4 10^3/uL (1.4-6.5); Hematocrit 20.9 % (37.0-47.0); Hemoglobin 7.5 g/dL (12.0-16.0); Mean Corp Hgb Conc. 35.9 g/dL (33.0-37.0); Mean Corpuscular Hgb 35.9 pg (27.0-31.0); Nucleated Red Blood Cells % 0.4 %; Platelet Count 104 10^3/uL (130-400); Red Blood Cell Count 2.09 10^6/uL (4.20-5.40); Red Cell Dist. Width 13.9 % (11.5-14.5); White Blood Cell Count 4.8 10^3/uL (4.8-10.8)
[2024-04-08 06:09] LABS: Lactic Acid 0.7 mmol/L (0.7-2.0)
[2024-04-08 06:41] LABS: ALT (SGPT) 301 U/L (0-35); AST (SGOT) 305 U/L (14-36); Albumin 2.8 g/dl (3.5-5.0); Alkaline Phosphatase 49 U/L (38-126); Blood Urea Nitrogen 7 mg/dl (7-17); Calcium 7.9 mg/dl (8.4-10.2); Carbon Dioxide 23 mmol/L (22-30); Chloride 105 mmol/L (98-107); Estimated Creatinine Clearance > 125 ml/min; Glucose 117 mg/dl (70-99); Potassium 3.6 mmol/L (3.5-5.1); Sodium 136 mmol/L (135-145); Total Bilirubin 0.6 mg/dl (0.2-1.3); Total Protein 5.5 g/dl (6.3-8.2); eGFR > 60.00
[2024-04-08 07:15] VITALS: BP 110/63
[2024-04-08] MEDS: FOLVITE 1 MG PO (09:40)
[2024-04-08] MEDS: VITAMIN B1 100 MG PO ×2 (09:44→21:04)
--- NOTE | 2024-04-08 10:37 | W.PN.GI.CBS2 ---
Today's Communication / Plan
-
trend labs
Assessment / Plan
-
Pt is a 38yo with hx ETOH(several drinks of Whiskey daily, drinking 1 bottle per week) /tobacco use, prior hep C exposure with no chronic medical issues. She began with sudden onset of abdominal pain with nausea/vomiting and diarrhea on 04/03 in
the PM. She began with mild pain that become severe quickly and on arrival to ER was unresponsive. CT on admission with concern for moderate hemoperitoneum with heterogeneous mass in pelvis with left ovarian vein track to lesion with concern for
torsion with hemorrhage. Ruptured ectopic in differential but HBG was neg. On arrival she was noted with marked hypotension with initial BP 55/32 on arrival requiring pressors with lactate 17.9. She proceeded to OR for exp lap with noted
large amount of hemoperitoneum and clot about 1400ml abdominal myomectomy and fulguration endometriosis. General surgery eval as also given during OR with thorough eval of spleen, liver, without bleeding, SB run from LT and TI normal colon and
blood evidence of active bleeding. Post -op pt was extubated and hbg 7-8 range with improved blood pressure at this time without pressors. Asked to see for rise in LFT's. Initial LFT's 04/03 on arrival with bili 0.3, AST 172, ALT 105, alk phos 51.
Repeat 04/06 with bili 1.2, AST 1284, ALT 677 alk phos 37. INR was 1.77 on admission.
-marked rise in LFT's after admission
-hemoperitoneum/elevated lactate on admission s/p exp lap/myomectomy- unclear bleeding source per RUNNING SPECIALIST
-hypotension on admission requiring pressors
-s/p intubation
-anemia acute blood loss
-thrombocytopenia
-coagulopathy on admission
-hx hep C exposure
-ETOH abuse
-fatty liver on US
-hx heavy menses prior to admission
PLAN:
etiology of elevated LFT's related to shock liver with marked hypotension and also underlying fatty liver from possible EtOH and also her viral serologies are positive for hepatitis C
Await hepatitis C viral load (P)
HBV s AB is positive most likely from prior vaccination her core total antibody is negative and HBV surface antigen is negative
trend labs
Low platelets most likely related to massive hemoperitoneum and consumption- improving, doubt underlying cirrhosis, INR normal
Postop management per RUNNING SPECIALIST and surgery
counseled pt on cutting back on ETOH use
LFTs are trending down continue to monitor
Will follow-up as outpatient and if positive HCV viral load will need treatment for HCV
GI will sign off
Subjective
Subjective
Date of Service: April 08, 2024
Abdominal pain is improved she is tolerating clear liquids, had a low-grade fever at 4 AM, no nausea or vomiting
Objective
Data Reviewed
Laboratory Data:
Laboratory Results
04/08/24 05:05
04/08/24 05:05
Laboratory Results
PT 12.7 Sec (11.4-14.6) 04/07/24 12:34
INR 0.92 04/07/24 12:34
APTT 24.5 Sec (23.4-35.0) 04/06/24 13:18
Phosphorus 2.6 mg/dl (2.5-4.5) 04/06/24 04:02
Magnesium 1.6 mg/dl (1.6-2.3) 04/06/24 04:02
Total Bilirubin 0.6 mg/dl (0.2-1.3) 04/08/24 05:05
AST 305 U/L (14-36) H 04/08/24 05:05
ALT 301 U/L (0-35) H 04/08/24 05:05
Alkaline Phosphatase 49 U/L (38-126) 04/08/24 05:05
Lipase 77 U/L (23-300) 04/06/24 04:02
Vital Signs and I&O:
Vital Signs
Temp Pulse Resp BP Pulse Ox
99.0 F 71 18 110/63 98
04/08/24 07:15 04/08/24 07:15 04/08/24 07:15 04/08/24 07:15 04/08/24 07:15
I&O
04/07/24 04/08/24 04/09/24
06:59 06:59 06:59
Intake Total 720 / 720 1710 / 1710
Output Total 175 / 175 73 / 73
Balance 545 / 545 1637 / 1637
Physical Exam
Physical Exam
Cardiology: Normal Sinus Rhythm
Pulmonary: Clear
GI: Soft, Non Distended, Tender (mild tenderness at incision site) and Normal Bowel Sounds
[2024-04-08 11:15] VITALS: BP 130/85
[2024-04-08] MEDS: CLARITIN 10 MG PO (11:33)
--- NOTE | 2024-04-08 11:36 | W.PN.GS2 ---
Addendum entered and electronically signed by Luis Hernández MD 04/08/24 11:58:
I saw and examined the patient.
The Public Health Doctor's note was reviewed and I agree with the note.
Comment: Improved from yesterday, nausea resolved. Passing flatus. Ambulating and woring on IS. Pain controlled. Exam approp. Adv to [facility]D
Original Note:
Today's Communication / Plan
-
Clear liquids
Assessment / Plan
-
Patient is a 38 yo F p/w hemorrhagic shock POD#4 s/p exploratory laparotomy and myomectomy
Low grade temp of 100.4 this am, VSS
No leukocytosis
Surgical site clean without erythema/signs of infection. Abdominal exam improving.
Acute blood loss anemia with component of hemodilution. Hb relatively stable at 7.5 (8.2). Low concern for continued active blood loss at this time.
Thrombocytopenia improving
Ileus resolving
LFT's trending back down: GI following
-- Trial of clears
-- IVF until tolerating diet
-- Follow labs
-- Pain meds as needed, OK for Toradol and DVT prophylaxis
-- Encouraged activity/oob and ambulate
Subjective Data
-
Date of Service: April 08, 2024
Patient seen and examined at bedside with Dr. Hernández. Denies n/v. Pain much improved. Passing flatus. Able to use IS.
Objective Data
-
Intake and Output
04/07/24 04/08/24 04/09/24
06:59 06:59 06:59
Intake Total 720 / 720 1710 / 1710
Output Total 175 / 175 73 / 73
Balance 545 / 545 1637 / 1637
Intake:
Oral fluids 720 / 720 960 / 960
IV fluids (Total) 750 / 750
Output:
Drain Output (Total) 175 / 175
Right Luisito-Billings 175 / 175
Other:
Number of approximated MODERATE 2 2
amounts of urine
Number of approximated LARGE 1
amounts of urine
Vital Signs
Temp Pulse Resp BP Pulse Ox
99.0 F 71 18 110/63 98
04/08/24 07:15 04/08/24 07:15 04/08/24 07:15 04/08/24 07:15 04/08/24 07:15
Lab Results
04/08/24 05:05
04/08/24 05:05
Calcium 7.9 mg/dl (8.4-10.2) L 04/08/24 05:05
Phosphorus 2.6 mg/dl (2.5-4.5) 04/06/24 04:02
Magnesium 1.6 mg/dl (1.6-2.3) 04/06/24 04:02
Total Bilirubin 0.6 mg/dl (0.2-1.3) 04/08/24 05:05
AST 305 U/L (14-36) H 04/08/24 05:05
ALT 301 U/L (0-35) H 04/08/24 05:05
Alkaline Phosphatase 49 U/L (38-126) 04/08/24 05:05
Total Protein 5.5 g/dl (6.3-8.2) L 04/08/24 05:05
Albumin 2.8 g/dl (3.5-5.0) L 04/08/24 05:05
Physical Exam
-
Gen: NAD
Abd: soft, mild generalized tenderness, minimal distension, non-peritoneal
Midline incision with intact stefany, AKHIL site with intact dressing
[2024-04-08 11:49] LABS: Urine Albumin Trace (Neg - Trace); Urine Bilirubin Negative (Negative); Urine Character Slightly Cloudy (Clear); Urine Color Yellow; Urine Glucose Negative (Negative); Urine Ketone 2+ (Negative); Urine Leukocyte Negative (Negative); Urine Nitrite Negative (Negative); Urine Occult Blood 4+ (Negative); Urine Specific Gravity 1.005 (<1.030); Urine Urobilinogen Negative (Neg - 1+)
--- NOTE | 2024-04-08 12:03 | W.PN.OBG.DWH ---
Today's Communication / Plan
-
Diet per gen surg
Encourage ambulation
Pain control
Assessment/Plan
-
38yo female POD#4 s/p exploratory laparotomy with myomectomy
- advance diet per gen surg. Tolerating clear liquid diet
- Hypovolemic/hemorrhagic shock from acute blood loss- source not able to be determined. No signs of ongoing bleeding. Hgb 7.5 this AM
- Low grade temp this AM. 100.4. No leukocytosis. Blood cultures pending. Has been afebrile since
- Transaminitis- LFTs decreasing. Likely combination of hemorrhagic shock and alcohol use. Hep C viral load pending.
- UTI- continue Rocephin
Subjective Data
-
No complaints. Pain well controlled. Tolerating clear liquids. Denies nausea or vomiting. +flatus. Voiding spontaneously. She was able to walk down the hallway without difficulty.
Objective Data
-
General: well appearing, sitting up in bed
Abd: soft, nontender, incision covered w/ abd w/ no shadowing
Ext: nontender, no swelling
Laboratory Results
04/08/24 05:05
04/08/24 05:05
Vital Signs
Temp Pulse Resp BP Pulse Ox
97.8 F 73 16 130/85 99
04/08/24 11:15 04/08/24 11:15 04/08/24 11:15 04/08/24 11:15 04/08/24 11:15
--- NOTE | 2024-04-08 12:36 | W.PN.HOSP.TC ---
Today's Communication/Plan
-
ambulate
advance diet
incentive germán use
pain control
Assessment / Plan
Assessment / Plan
Physical Exam
NAD, resting comfortably in bed
Scleral anicteric
Moist mucous membranes
No JVD
CTA bilateral
Normal S1-S2 no murmurs
Soft nontender nondistended bowel sounds active
No peripheral pitting edema
Moves extremities spontaneously
AAOx3
Assesment and plan
Hemorrhagic shock - resolved
Hemoperitoneum s/p ex lap pod 2 with myomectomy
-s/p 2u prbc
-hgb stable now, transfuse hgb<7
-ski maker wood and surgery following
-AKHIL drains remain in place
Ileus - per surgery expect post hemoperitonium, reoslved
advance diet as toelrated, cld per suregry
Transaminits
-Intially suspected as it was a modest elevation that it was related to fatty liver.
-But todays LFT's are in the 1000's, therefore, cannot exclude shock liver (ischemic hep) as etiology satish as she was in hemorrhagic shock requiring pressors
-Will check acute hep panel for completeness
-Will have GI eval
-Can check a CK
-Hold hepatoxins at this time/
Alcohol use disorder
-drinks 6alcohol beverages daily, (combincation of beer, liquor and clayton beer cocktail.
-Msas
-thiamine
-folate
Metabolic acidosis
-resolved
Hep C +
-Check rna wll need outpt hep follow up
Anticipated Discharge: 24 - 48 hours
Subjective/Interval History
-
Date of Service: April 08, 2024
seen and exmained. no new complaints
states that she is feeling better
no further nausea. passing flatus.
laughing and smiling this AM
states that she has sensitive skin and some detergents cause her to get rashes
-rash now resolved
Objective Data
-
Labs:
Laboratory Results
04/08/24
05:05
WBC 4.8
Hgb 7.5 L
Hct 20.9 L*
Plt Count 104 L
Sodium 136
Potassium 3.6
Chloride 105
Carbon Dioxide 23
BUN 7
Creatinine 0.6
Glucose 117 H
Calcium 7.9 L
Total Bilirubin 0.6
AST 305 H
ALT 301 H
Alkaline Phosphatase 49
Vital Signs:
Vital Signs
Temp Pulse Resp BP Pulse Ox
97.8 F 73 16 130/85 99
04/08/24 11:15 04/08/24 11:15 04/08/24 11:15 04/08/24 11:15 04/08/24 11:15
I&O
04/07/24 04/08/24 04/09/24
06:59 06:59 06:59
Intake Total 720 / 720 1710 / 1710
Output Total 175 / 175 73 / 73
Balance 545 / 545 1637 / 1637
[2024-04-08 12:57] LABS: Urine Bacteria Few (Negative); Urine Red Blood Cell 70-80 /HPF (0-2); Urine White Cell 0-2 /HPF (0-5)
[2024-04-08 15:10] VITALS: BP 126/75
[2024-04-08] MEDS: FLUSH (NSS) 1 FLUSH IV ×2 (18:40)
[2024-04-08] MEDS: ROCEPHIN 2000 MG IV (18:41)
[2024-04-08] MEDS: STERILE WATER FOR INJECTION 20 ML IV (18:41)
[2024-04-08 19:05] VITALS: BP 130/89
[2024-04-08] MEDS: KCL IV (21:04)
[2024-04-08] MEDS: ROXICODONE 5 MG PO (21:12)
[2024-04-08 23:15] VITALS: BP 122/77
[2024-04-09 01:11] LABS: HCV Quant by NAAT IU/mL 4060000 IU/mL; HCV Quant by NAAT Interp Detected (Not Detected); HCV Quant by NAAT Log IU/mL 6.61 log IU/mL
[2024-04-09 02:57] LABS: Transferrin 197 mg/dL (200-360)
[2024-04-09 03:15] VITALS: BP 104/63
[2024-04-09 05:59] LABS: ALT (SGPT) 232 U/L (0-35); AST (SGOT) 162 U/L (14-36); Albumin 2.7 g/dl (3.5-5.0); Alkaline Phosphatase 45 U/L (38-126); Blood Urea Nitrogen 3 mg/dl (7-17); Calcium 7.9 mg/dl (8.4-10.2); Carbon Dioxide 29 mmol/L (22-30); Chloride 104 mmol/L (98-107); Estimated Creatinine Clearance > 125 ml/min; Glucose 113 mg/dl (70-99); Potassium 3.4 mmol/L (3.5-5.1); Sodium 136 mmol/L (135-145); Total Bilirubin 0.4 mg/dl (0.2-1.3); Total Protein 5.5 g/dl (6.3-8.2); eGFR > 60.00
[2024-04-09 06:00] VITALS: BMI 23.6
[2024-04-09 06:17] LABS: Hematocrit 22.1 % (37.0-47.0); Hemoglobin 7.6 g/dL (12.0-16.0); Mean Corp Hgb Conc. 34.4 g/dL (33.0-37.0); Mean Corpuscular Hgb 35.5 pg (27.0-31.0); Mean Corpuscular Volume 103.3 fL (81.0-99.0); Mean Platelet Volume 9.9 fL (7.4-10.4); Platelet Count 132 10^3/uL (130-400); Red Blood Cell Count 2.14 10^6/uL (4.20-5.40); Red Cell Dist. Width 14.8 % (11.5-14.5); White Blood Cell Count 4.5 10^3/uL (4.8-10.8)
[2024-04-09 07:15] VITALS: BP 123/76
[2024-04-09] MEDS: VITAMIN B1 100 MG PO (08:04)
[2024-04-09] MEDS: CLARITIN 10 MG PO (08:04)
[2024-04-09] MEDS: ROXICODONE 5 MG PO (08:05)
[2024-04-09] MEDS: FOLVITE 1 MG PO (08:05)
[2024-04-09] MEDS: KCL 40 MEQ PO (08:58)
--- NOTE | 2024-04-09 10:51 | W.PN.GS2 ---
Addendum entered and electronically signed by Luis Hernández MD 04/09/24 11:23:
I saw and examined the patient.
The Environmental Sustainability Manager's note was reviewed and I agree with the note.
Comment: Much improved. Passing flatus. Eliseo clrs. Abd soft, minimal ttp, incision cdi. ADAT to LRD, ok for DC home from surg standpoint when tolerating LRD
Original Note:
Today's Communication / Plan
-
Advance diet
Assessment / Plan
-
Patient is a 38 yo F p/w hemorrhagic shock POD#5 s/p exploratory laparotomy and myomectomy
AFVSS
No leukocytosis, h/h stable
LFT's trending back down: GI following
Still with mild hypokalemia; replaced
Ileus resolving with evidence of return of bowel function
-- Advance to LRD
-- Pain meds as needed
-- DVT prophylaxis as per primary team
-- Encouraged activity/oob and ambulate
Nearing readiness for discharge. Clear from GS standpoint once tolerating diet
Subjective Data
-
Date of Service: April 09, 2024
Patient seen and examined at bedside with Dr. Hernández. Feels markedly better. Tolerating clears without n/v. Passing quite a bit of flatus now. Minimal discomfort at incision.
Objective Data
-
Intake and Output
04/08/24 04/09/24 04/10/24
06:59 06:59 06:59
Intake Total 1710 / 1710 1880 / 1880
Output Total 2150 / 2150
Balance 1637 / 1637 -270 / -270
Intake:
Oral fluids 960 / 960 1680 / 1680
IV fluids (Total) 750 / 750 200 / 200
Output:
Drain Output (Total)
Right Luisito-Billings 73 / 73
Urine, Voided 2150 / 2150
Other:
Number of approximated MODERATE 2 4
amounts of urine
Vital Signs
Temp Pulse Resp BP Pulse Ox
98.1 F 79 16 123/76 99
04/09/24 07:15 04/09/24 07:15 04/09/24 07:15 04/09/24 07:15 04/09/24 07:15
Lab Results
04/09/24 04:35
04/09/24 04:35
Calcium 7.9 mg/dl (8.4-10.2) L 04/09/24 04:35
Phosphorus 2.6 mg/dl (2.5-4.5) 04/06/24 04:02
Magnesium 1.6 mg/dl (1.6-2.3) 04/06/24 04:02
Total Bilirubin 0.4 mg/dl (0.2-1.3) 04/09/24 04:35
AST 162 U/L (14-36) H 04/09/24 04:35
ALT 232 U/L (0-35) H 04/09/24 04:35
Alkaline Phosphatase 45 U/L (38-126) 04/09/24 04:35
Total Protein 5.5 g/dl (6.3-8.2) L 04/09/24 04:35
Albumin 2.7 g/dl (3.5-5.0) L 04/09/24 04:35
Physical Exam
-
Gen: NAD
Abd: soft, NT, ND, non-peritoneal
Midline incision with intact stefany, AKHIL site with intact dressing
[2024-04-09 11:00] VITALS: BP 112/69
--- NOTE | 2024-04-09 12:13 | W.PN.HOSP.TC ---
Today's Communication/Plan
-
If able to toelrate advanced diet then plan to dc home
More than 30 minutes spent in discharge including
Final examination of the patient
Summarizing hospital stay
Instructions for continuing care to all relevant caregivers
Preparation of discharge records, prescriptions, and referral forms
Total time spent (in minutes): 33min
Assessment / Plan
Assessment / Plan
Physical Exam
NAD, resting comfortably in bed
Scleral anicteric
Moist mucous membranes
No JVD
CTA bilateral
Normal S1-S2 no murmurs
Soft nontender nondistended bowel sounds active
No peripheral pitting edema
Moves extremities spontaneously
AAOx3
Assesment and plan
Hemorrhagic shock - resolved
Hemoperitoneum s/p ex lap pod 2 with myomectomy
-s/p 2u prbc
-hgb stable now, transfuse hgb<7
-diversional therapist's assistant and surgery following
-AKHIL removed x2
Ileus - per surgery expect post hemoperitonium, reoslved
advance diet as toelrated, advsnce diet as tolerated per suregry
Transaminits
-Intially suspected as it was a modest elevation that it was related to fatty liver.
-But todays LFT's are in the 1000's, therefore, cannot exclude shock liver (ischemic hep) as etiology satish as she was in hemorrhagic shock requiring pressors
-Will check acute hep panel for completeness
-Will have GI eval
-Can check a CK
-Hold hepatoxins at this time/
Alcohol use disorder
-drinks 6alcohol beverages daily, (combincation of beer, liquor and clayton beer cocktail.
-Msas
-thiamine
-folate
Metabolic acidosis
-resolved
Hep C +
-Check rna wll need outpt hep follow up
Anticipated Discharge: Today
Subjective/Interval History
-
Date of Service: April 09, 2024
seen and exmained. no new complaints. no acute ovenright events
in good spiritis today
Objective Data
-
Labs:
Laboratory Results
04/09/24
04:35
WBC 4.5 L
Hgb 7.6 L
Hct 22.1 L
Plt Count 132 D
Sodium 136
Potassium 3.4 L
Chloride 104
Carbon Dioxide 29
BUN 3 L
Creatinine 0.6
Glucose 113 H
Calcium 7.9 L
Total Bilirubin 0.4
AST 162 H
ALT 232 H
Alkaline Phosphatase 45
Vital Signs:
Vital Signs
Temp Pulse Resp BP Pulse Ox
98.1 F 75 16 112/69 100
04/09/24 11:00 04/09/24 11:00 04/09/24 11:00 04/09/24 11:00 04/09/24 11:00
I&O
04/08/24 04/09/24 04/10/24
06:59 06:59 06:59
Intake Total 1710 / 1710 1880 / 1880
Output Total 73 / 73 2150 / 2150
Balance 1637 / 1637 -270 / -270
--- NOTE | 2024-04-09 12:19 | W.DCSUMMARY ---
Discharge Summary
Discharge Data
Date of Admission: 04/04/24
Date of Discharge: 04/09/24
-
Pending Results: No
Hospital Course
38 F no pmh who was found in the kitchen obtunded/unresonsive on arrival and was intubated for airway protection in the ED. She was noted to be hypotensive and acidotic. She was aggressivelly volume resuscitated and initated on pressors. She was
sent for a CT that demonstated a large pelvic mass 11.8 x 10cm in central pelvis to right of midline. Left gonadal vessels tracking into lesion. Mass contains multiple small low- attenuation foci. Large surrounding hematoma large volume
hemoperitoneum. findings concerning for ovarian torsion with rupture. OXIDE FURNACE TENDER was consulted and taken to the OR. Unable to find source of bleeding apart from large fibroid. Surgery was called into the case for further asistance but unable to find source
of bleeding as well. She was provided with 2u PRBC. She was eventually depact and closed up with 2JP drain left in place to monitor for bleeding. She was then moved to the ICU as she remained vented and required pressors. Fortunantly, she was
extubatable and pressors were discontinued as she received adequate fluid expansion. Hospitalization was further complicated by post op ileus that spontaneously resolved wiht NGT and was eventually started on a diet htat was advanced per surgery
recs.
Hospitalization was further complicated by transaminitis with a inital modest elevation thought to be secondary to fatty liver, alcohol hep. But then her LFT's went into the 1000's this is likely secondary to Ischemic hepatitis in the setting of
hemorrhagic shock. Hep C ab was + and found to have a Hep C viral of 4,060,000. Rec to have her boyfriend tested for Hep C as well. WIll need outpatietn GI follow up
Additionally treated for EColi UTI.
Discharge Plan
-
Patient Disposition: Home (Routine Discharge)
Discharge Diagnosis/Procedures: Hemoperitoneum
Uterine Fibroid
S/p Myomectomy
Post Op Ileus
Macrocytic Anemia
EColi UTI
Hepatitis C +, with a viral load of 4,060,000
Diet: Low Residue
Activity: As tolerated
Bathing Restrictions: OK to Shower
Wound Care: Cover your incision with dry gauze dressing if you notice any drainage and change that dressing every day and as needed. See your surgeon 2-3 weeks after surgery to have the stefany removed from your incision.
Referrals:
Nesha Johnson NP [Family Provider] -
Alona Ferraro DO [Active] - in one to two weeks
Bin Roberts MD [Active] - None (As needed)
Prescriptions:
New
folic acid 1 mg Tablet
1 mg PO DAILY 30 Days Qty: 30 0RF
thiamine HCl (vitamin B1) 100 mg Tablet
100 mg PO BID 30 Days Qty: 60 0RF
oxycodone-acetaminophen [Percocet] 5-325 mg tablet
1 tab PO Q8H PRN (Reason: Pain) 3 Days Qty: 10 0RF
Discharge Orders:
Discharge Patient (As Directed); Ordered 04/09/24
Ordered By: Malick Nails
Discharge Date and Time
Print Language: BELARUSIAN
--- NOTE | 2024-04-09 13:05 | W.PN.OBG.DWH ---
Today's Communication / Plan
-
stable for DC home from ASTRO TECHNICIAN perspective
follow up in office in 1-2 weeks
DC instructions discussed
Assessment/Plan
-
38yo female POD#5 s/p exploratory laparotomy with myomectomy
- advance diet per gen surg. Tolerated breakfast this AM
- Hypovolemic/hemorrhagic shock from acute blood loss- source not able to be determined. No signs of ongoing bleeding. Hgb 7.6 this AM
- Low grade temp yesterday. 100.4. No leukocytosis. No further fevers
- Transaminitis- LFTs decreasing. Likely combination of hemorrhagic shock and alcohol use. Hep C viral load pending. Pt to follow up with GI outpatient
- Patient stable for DC from ASTRO TECHNICIAN perspective. She should follow up in the office in 1-2wks. Discharge instructions were discussed.
Subjective Data
-
No complaints. Feeling well. Pain well controlled. Denies dizziness or lightheadedness. Tolerated breakfast. +flatus. Voiding spontaneously.
Objective Data
-
General: well appearing, resting in bed
Abd: soft, appropriately tender, incision c/d/i, no erythema, stefany in place
Ext: nontender
Laboratory Results
04/09/24 04:35
04/09/24 04:35
Vital Signs
Temp Pulse Resp BP Pulse Ox
98.1 F 75 16 112/69 100
04/09/24 11:00 04/09/24 11:00 04/09/24 11:00 04/09/24 11:00 04/09/24 11:00
--- NOTE | 2024-04-09 15:20 | CM ---
Pt for discharge today
Has ride home
Plan - home no needs
== END 2024-04-09 15:16 | disposition home or self-care (01) | DRG 356 ==
LOC: 2 NORTH 05:36
PROVIDERS: Nurse Practitioner Adult Health; Nurse Practitioner Family; Radiology Vascular & Interventional Radiology; Registered Nurse; Student in an Organized Health Care Education/Training Program; Surgery; ADMITTING PHYSICIAN Hospitalist; ATTENDING PHYSICIAN Hospitalist; CONSULT PHYSICIAN Internal Medicine Critical Care Medicine; CONSULT PHYSICIAN Internal Medicine Gastroenterology; CONSULT PHYSICIAN Obstetrics & Gynecology; EMERGENCY PHYSICIAN Student in an Organized Health Care Education/Training Program; FAMILY PHYSICIAN Nurse Practitioner Family
PROC: 30233N1 Transfusion of Nonautologous Red Blood Cells into Peripheral Vein, Percutaneous Approach (ICD-10-PCS; 2024-04-04)
PROC: 0U510ZZ Destruction of Left Ovary, Open Approach (ICD-10-PCS; 2024-04-04)
PROC: 0W9J00Z Drainage of Pelvic Cavity with Drainage Device, Open Approach (ICD-10-PCS; 2024-04-04)
PROC: 0WJG0ZZ Inspection of Peritoneal Cavity, Open Approach (ICD-10-PCS; 2024-04-04)
PROC: 0UB90ZZ Excision of Uterus, Open Approach (ICD-10-PCS; 2024-04-04)
PROC: 0BH18EZ Insertion of Endotracheal Airway into Trachea, Via Natural or Artificial Opening Endoscopic (ICD-10-PCS; 2024-04-04)
DX: K66.1 Hemoperitoneum (principal); G92.8 Other toxic encephalopathy; R57.8 Other shock; J96.02 Acute respiratory failure with hypercapnia; K72.00 Acute and subacute hepatic failure without coma; D62 Acute posthemorrhagic anemia; E87.20 Acidosis, unspecified; E87.1 Hypo-osmolality and hyponatremia; N39.0 Urinary tract infection, site not specified; N17.9 Acute kidney failure, unspecified; D68.9 Coagulation defect, unspecified; K91.89 Other postprocedural complications and disorders of digestive system; K56.7 Ileus, unspecified; N80.112 Superficial endometriosis of left ovary; F17.210 Nicotine dependence, cigarettes, uncomplicated; D25.9 Leiomyoma of uterus, unspecified; D69.59 Other secondary thrombocytopenia; R73.9 Hyperglycemia, unspecified; E83.51 Hypocalcemia; F10.10 Alcohol abuse, uncomplicated; B96.20 Unspecified Escherichia coli [E. coli] as the cause of diseases classified elsewhere; E78.1 Pure hyperglyceridemia; B19.20 Unspecified viral hepatitis C without hepatic coma; D53.9 Nutritional anemia, unspecified; K76.0 Fatty (change of) liver, not elsewhere classified; Z88.0 Allergy status to penicillin; Z88.2 Allergy status to sulfonamides; Y83.8 Other surgical procedures as the cause of abnormal reaction of the patient, or of later complication, without mention of misadventure at the time of the procedure
CPT/HCPCS: 88305; 31500; 36556; 51702; 70450; 71045; 71260; 74177; 76700; 76830; 76856; 80048; 80053; 80143; 80179; 80306; 81003; 81015; 82010; 82077; 82728; 82805; 82962; 83036; 83540; 83550; 83605; 83690; 83735; 83930; 84075; 84100; 84450; 84460; 84466; 84478; 84703; 85014; 85018; 85025; 85027; 85384; 85610; 85730; 86704; 86706; 86708; 86803; 86850; 86900; 86901; 86920; 87040; 87077; 87086; 87186; 87340; 87522; 93005; 94002; 96374; 96375; 99291; 99292; C1776; P9016; Q9967